=== PATIENT | female | born 1950 | race Caucasian/White ===

== ENCOUNTER 2018-02-19 14:55 | Emergency (ER) | payer BC ==
--- NOTE | 2018-02-19 15:54 | PDOC ---
History of Present Illness <Kathrin Jones - Last Filed: 02/19/18 18:23> - General History Source: Patient Exam Limitations: No Limitations - History of Present Illness Initial Comments: 02/19/18 15:47 68y F hx of htn, cervical stenosis presents with complaint of ataxia. The patient was feelig well this morning, went to her pain management doctor to have a cervical injection for her stenosis, and afterwards, was noted to be a bit ataxic and unable to ambulate. The pt denies any neck pain, headache, n/v, vision changes, dysartria, numbness/weakness/tingling, fever/chills, cp, sob, abd pain, diaphoresis, dysuria, palpitations. pt denies any focal weakness. <Maciej Smith - Last Filed: 02/19/18 18:35> - General Chief Complaint: CVA/TIA Stated Complaint: OFF BALANCE AFTER STERIOD INJECTION Time Seen by Provider: 02/19/18 15:29 Past History <Kathrin Jones - Last Filed: 02/19/18 18:23> - Past Medical History Anemia: No Asthma: No Cancer: No Cardiac Disorders: No CVA: No COPD: No CHF: No Dementia: No Diabetes: No GI Disorders: No Disorders: No HTN: Yes Hypercholesterolemia: Yes Liver Disease: No Seizures: No Thyroid Disease: No - Surgical History Abdominal Surgery: No Appendectomy: No Cardiac Surgery: No Cholecystectomy: No Lung Surgery: No Neurologic Surgery: No Orthopedic Surgery: Yes (LEFT FOOT) - Suicide/Smoking/Psychosocial Hx Smoking History: Former smoker Have you smoked in the past 12 months: No If you are a former smoker, when did you quit?: Hx Alcohol Use: Yes (WINE) Drug/Substance Use Hx: No Substance Use Type: Alcohol Hx Substance Use Treatment: No <Maciej Smith - Last Filed: 02/19/18 18:35> - Past Medical History Allergies/Adverse Reactions: Allergies Allergy/AdvReac Type Severity Reaction Status Date / Time No Known Allergies Allergy Verified 02/19/18 16:41 Home Medications: Ambulatory Orders Aspirin [ASA -] 81 mg PO DAILY 06/25/12 Cyanocobalamin (Vitamin B-12) [B-12] 5,000 mcg SL DAILY 08/18/16 Diphenhydramine HCl [Benadryl] 50 mg PO HS capsule 08/18/16 Psyllium Husk (with Sugar) [Metamucil Packet] 3.4 gm PO TID 08/18/16 Sennosides [Senokot] 8.6 mg PO TID tablet 08/18/16 Cholecalciferol (Vitamin D3) [Vitamin D] 2,000 unit PO DAILY 02/19/18 Tramadol HCl 50 mg PO BID PRN 02/19/18 Review of Systems - Review of Systems Able to Perform ROS?: Yes Comments:: 02/19/18 15:51 Constitutional - no reported Fever, Chills, HEENT: no reported vision changes, sore throat Respiratory: no reported cough, sob, hemoptysis Cardiac: no reported chest pain, palpitations, light headedness, leg swelling Abd/GI: no reported abd pain, nausea, vomiting, blood per rectum, melena, diarrhea : no reported dysuria, frequency, discharge Musculskelatal - no reported back pain, joint swelling skin - no reported bruising, erythema, rash neurological: +Ataxia no reported headache, numbness, focal weakness, tingling hematologic: no reported easy bruising, easy bleeding <Maciej Smith - Last Filed: 02/19/18 18:35> *Physical Exam - Vital Signs Last Vital Signs Temp Pulse Resp BP Pulse Ox 98.4 F 75 16 149/74 99 02/19/18 15:18 02/19/18 15:18 02/19/18 15:18 02/19/18 15:18 02/19/18 15:18 <Kathrin Jones - Last Filed: 02/19/18 18:23> - Physical Exam Comments: 02/19/18 15:54 GENERAL: The patient is awake, alert, and fully oriented, Nontoxic - in no acute distress. HEAD: Normocephalic, atraumatic. EYES: extraocular movements intact, sclera anicteric, conjunctiva clear. ENT: Normal voice, Moist mucous membranes. NECK: Normal range of motion, supple LUNGS: Breath sounds equal, clear to auscultation bilaterally. No wheezes, no rhonchi, no rales. HEART: Regular rate and rhythm, normal S1 and S2 without murmur, rub or gallop. ABDOMEN: Soft, nontender, normoactive bowel sounds. No guarding, no rebound. . No CVA tenderness EXTREMITIES: Normal range of motion, no edema. No clubbing or cyanosis. No cords, erythema, or tenderness. PSYCH: Normal mood, normal affect. SKIN: Warm, Dry, normal turgor, NEURO: Mental status: The patient is oriented x3. Cranial nerves: Cranial nerves II through XII are intact Motor: The upper extremities are 5 over 5 in all muscle groups. The lower extremities are 5 over 5 in all muscle groups. Negative pronator drift Sensation: Sensation is intact to light touch throughout. romberg negative Cerebellar: Gpgijq-wkxkuk-snmv is normal in both upper extremities. Heel-knee- dawn is normal in both lower extremities. rapid alternating movements are normal. Reflexes: 2+ and symmetric in the upper and lower extremities. Gait: Normal gait, but ataxic heel/toe gait <Maciej Smith - Last Filed: 02/19/18 18:35> Moderate Sedation - Procedure Monitoring Vital Signs: Vital Signs Temp Pulse Resp BP Pulse Ox 98.4 F 75 16 149/74 99 02/19/18 15:18 02/19/18 15:18 02/19/18 15:18 02/19/18 15:18 02/19/18 15:18 <Kathrin Jones - Last Filed: 02/19/18 18:23> ED Treatment Course - LABORATORY CBC & Chemistry Diagram: 02/19/18 16:30 02/19/18 16:30 - ADDITIONAL ORDERS Additional order review: Laboratory Results 02/19/18 02/19/18 16:30 16:02 Sodium 133 L Potassium 4.4 Chloride 103 Carbon Dioxide 24 Anion Gap 6 L BUN 22 H Creatinine 1.1 Creat Clearance w eGFR 49.25 Random Glucose 117 H Calcium 9.8 Total Bilirubin 0.5 AST 24 ALT 15 Alkaline Phosphatase 67 Total Protein 7.4 Albumin 4.2 Urine Color Yellow Urine Appearance Clear Urine pH 5.5 Ur Specific [place] <= 1.005 Urine Protein Negative Urine Glucose (UA) Negative Urine Ketones Negative Urine Blood Negative Urine Nitrite Negative Urine Bilirubin Negative Urine Urobilinogen 0.2 Ur Leukocyte Esterase Negative 02/19/18 16:30 RBC 4.46 MCV 90.1 MCHC 34.9 RDW 12.6 MPV 9.2 Neutrophils % 86.9 H Lymphocytes % 10.9 Monocytes % 1.3 L Eosinophils % 0.6 Basophils % 0.3 - RADIOLOGY Radiograph Interpretation: 02/19/18 18:23 C-spine MRI as reviewed by Dr. Carrasquillo reports no interval change as compared to prior exam <Kathrin Jones - Last Filed: 02/19/18 18:23> - LABORATORY CBC & Chemistry Diagram: 02/19/18 16:30 02/19/18 16:30 - RADIOLOGY Radiology Studies Ordered: Category Date Time Status CERVICAL SPINE MRI W/O CONTR [MRI] Stat MRI 02/19/18 15:46 Ordered <Gray Smithan - Last Filed: 02/19/18 18:35> Medical Decision Making - Medical Decision Making 02/19/18 18:[address] Darrian Quinones and Dr. Ramirez, awaiting call backs. Call returned by Dr. Quinones, case discussed <RobertKathrin - Last Filed: 02/19/18 18:23> - Medical Decision Making 02/19/18 15:55 exam nonfocal beside inability to do heel/toe ambulation no cerebellar findings ?uncelar cause of ataxia - ?complication by injection? will obtian MRI will discuss with dr. ramirez 02/19/18 18:30 MRI negative, pt ambulatory, states that she figured out what was going on 'the ground feels softer' and she is overcompensating. recommended hospital observation for neuro consult,but pt would prefer seeing neuro as outpatient. discussed with dr. Ramirez, states this is reasonable and can see her tomorrow. I discussed the physical exam findings, ancillary test results and final diagnoses with the patient. I answered all of the patient's questions. The patient was satisfied with the care received and felt comfortable with the discharge plan and treatment plan. The patient will call their primary care physician within 24 hours to arrange follow-up and will return to the Emergency Department with any new, persistent or worsening symptoms. <Maciej Smith - Last Filed: 02/19/18 18:35> *DC/Admit/Observation/Transfer <Kathrin Jones - Last Filed: 02/19/18 18:23> - Discharge Dispostion Decision to Admit order: No <Maciej Smith - Last Filed: 02/19/18 18:35> Diagnosis at time of Disposition: Gait abnormality - Discharge Dispostion Disposition: HOME Condition at time of disposition: Improved - Referrals Referrals: Mj Antunez MD [Primary Care Provider] - Raghavendra Ramirez MD [Staff Physician] - - Patient Instructions Additional Instructions: Return to the emergency department immediately with ANY new, persistent or worsening symptoms. The results of your MRI were included with the discharge packet. You MUST call and follow up with Dr. Ramirez tomorrow for further evaluation of your symptoms. Results were discussed with you. Please make sure your doctor reviews the results of your emergency evaluation. Print Language: ETHIOPIAN - Post Discharge Activity
[2018-02-19 16:56] VITALS: BP 149/74; PULSE 75; TEMP 98.4; BMI 23.0
[2018-02-19 17:00] LABS: PH,URINE 5.5 (4.5-8); URINE APPEARANCE Clear; URINE BILIRUBIN Negative (NEGATIVE); URINE BLOOD Negative (NEGATIVE); URINE GLUCOSE (UA) Negative (NEGATIVE); URINE KETONE Negative (NEGATIVE); URINE LEUK ESTERASE Negative (NEGATIVE); URINE NITRITE Negative (NEGATIVE); URINE PROTEIN Negative (NEGATIVE); URINE UROBILINOGEN 0.2 (0.2-1.0)
[2018-02-19 17:01] LABS: URINE COLOR YELLOW
[2018-02-19 17:18] LABS: BASO % 0.3 % (0-2.0); EOS % 0.6 % (0-4.5); HEMATOCRIT 40.2 % (32.4-45.2); HEMOGLOBIN 14.1 GM/dl (10.7-15.3); LYMPH % 10.9 % (8-40); MCH 31.5 pg (25.7-33.7); MCHC 34.9 g/dl (32.0-36.0); MEAN CELL VOLUME 90.1 fl (80-96); MEAN PLT VOLUME 9.2 fl (7.5-11.1); MONO % 1.3 % (3.8-10.2); NEUT % 86.9 % (42.8-82.8); PLATELET COUNT 230 K/MM3 (134-434); RBC 4.46 M/mm3 (3.60-5.2); RDW 12.6 % (11.6-15.6); WHITE BLOOD COUNT 6.4 K/mm3 (4.0-10.8)
[2018-02-19 17:19] LABS: ALBUMIN 4.2 g/dl (3.5-5.0); ALK PHOS 67 U/L (32-92); ANION GAP 6 (8-16); BILIRUBIN,TOTAL 0.5 mg/dl (0.2-1.0); BLOOD UREA NITROGEN 22 mg/dl (7-18); CALCIUM 9.8 mg/dl (8.4-10.2); CHLORIDE 103 mmol/L (98-107); CO2 24 mmol/L (22-28); CREATININE 1.1 mg/dl (0.6-1.3); GLUCOSE,RANDOM 117 mg/dl (74-106); POTASSIUM 4.4 mmol/L (3.5-5.1); SGOT/AST 24 U/L (10-42); SGPT/ALT 15 U/L (10-40); SODIUM 133 mmol/L (136-145); TOT PROT 7.4 g/dl (6.4-8.3)
== END 2018-02-19 18:56 | disposition home or self-care (01) ==
LOC: FER 14:55
DX: R26.9 Unspecified abnormalities of gait and mobility (principal); I10 Essential (primary) hypertension; E78.00 Pure hypercholesterolemia, unspecified
CPT/HCPCS: 36415; 72141-TC; 80053; 81003; 85025; 99283-25

== ENCOUNTER 2018-09-30 15:18 | Emergency (ER) | payer BC ==
--- NOTE | 2018-09-30 15:25 | PDOC ---
History of Present Illness - General Chief Complaint: Chronic pain Stated Complaint: PAIN DOWN BOTH ARMS Time Seen by Provider: 09/30/18 15:24 Past History - Past Medical History Allergies/Adverse Reactions: Allergies Allergy/AdvReac Type Severity Reaction Status Date / Time No Known Allergies Allergy Verified 02/19/18 16:41 Home Medications: Ambulatory Orders Aspirin [ASA -] 81 mg PO DAILY 06/25/12 Cyanocobalamin (Vitamin B-12) [B-12] 5,000 mcg SL DAILY 08/18/16 Diphenhydramine HCl [Benadryl] 50 mg PO HS capsule 08/18/16 Psyllium Husk (with Sugar) [Metamucil Packet] 3.4 gm PO TID 08/18/16 Sennosides [Senokot] 8.6 mg PO TID tablet 08/18/16 Cholecalciferol (Vitamin D3) [Vitamin D] 2,000 unit PO DAILY 02/19/18 Tramadol HCl 50 mg PO BID PRN 02/19/18 Anemia: No Asthma: No Cancer: No Cardiac Disorders: No CVA: No COPD: No CHF: No Dementia: No Diabetes: No GI Disorders: No Disorders: No HTN: Yes Hypercholesterolemia: Yes Liver Disease: No Seizures: No Thyroid Disease: No - Surgical History Abdominal Surgery: No Appendectomy: No Cardiac Surgery: No Cholecystectomy: No Lung Surgery: No Neurologic Surgery: No Orthopedic Surgery: Yes (LEFT FOOT) - Suicide/Smoking/Psychosocial Hx Smoking History: Former smoker Have you smoked in the past 12 months: No If you are a former smoker, when did you quit?: Hx Alcohol Use: Yes (WINE) Drug/Substance Use Hx: No Substance Use Type: Alcohol Hx Substance Use Treatment: No *DC/Admit/Observation/Transfer - Discharge Dispostion Condition at time of disposition: Good - Referrals Referrals: Mj Antunez MD [Primary Care Provider] - - Patient Instructions - Post Discharge Activity
[2018-09-30 15:44] VITALS: BP 177/84; PULSE 88; TEMP 97.4; BMI 22.1
[2018-09-30] MEDS ORDERED: predniSONE 20 MG TABLET (UD) PO ONE (16:01)
[2018-09-30] MEDS ORDERED: predniSONE 20 MG TABLET (UD) ONE (16:04)
--- NOTE | 2018-09-30 16:07 | PDOC ---
History of Present Illness - General Chief Complaint: Chronic pain Stated Complaint: PAIN DOWN BOTH ARMS Time Seen by Provider: 09/30/18 15:24 History Source: Patient Exam Limitations: No Limitations - History of Present Illness Initial Comments: 09/30/18 16:01 68 y/o female with hx of spinal stenosis scheduled for surgery on 10/29/2018. No weakness, but has numbness down both arms and legs. No fall or trauma. Doing more lifting. No fever or chills. Denies incontinence. Patient does not want muscle relaxants or Percocet. Worse with certain movements. Past History - Past Medical History Allergies/Adverse Reactions: Allergies Allergy/AdvReac Type Severity Reaction Status Date / Time No Known Allergies Allergy Verified 09/30/18 15:33 Home Medications: Ambulatory Orders Cyanocobalamin (Vitamin B-12) [B-12] 5,000 mcg SL DAILY 08/18/16 Diphenhydramine HCl [Benadryl] 50 mg PO HS capsule 08/18/16 Psyllium Husk (with Sugar) [Metamucil Packet] 3.4 gm PO TID 08/18/16 Sennosides [Senokot] 8.6 mg PO TID tablet 08/18/16 Cholecalciferol (Vitamin D3) [Vitamin D] 2,000 unit PO DAILY 02/19/18 Tramadol HCl 50 mg PO BID PRN 02/19/18 Methylprednisolone [Medrol Dose Alexey] 4 mg PO ASDIR #21 tablet 09/30/18 Anemia: No Asthma: No Cancer: No Cardiac Disorders: No CVA: No COPD: No CHF: No Dementia: No Diabetes: No GI Disorders: No Disorders: No HTN: Yes Hypercholesterolemia: Yes Liver Disease: No Seizures: No Thyroid Disease: No Other medical history: CHRONIC BACK PAIN - Surgical History Abdominal Surgery: No Appendectomy: No Cardiac Surgery: No Cholecystectomy: No Lung Surgery: No Neurologic Surgery: No Orthopedic Surgery: Yes (LEFT FOOT) - Suicide/Smoking/Psychosocial Hx Smoking History: Former smoker Have you smoked in the past 12 months: No If you are a former smoker, when did you quit?: Hx Alcohol Use: Yes (WINE) Drug/Substance Use Hx: No Substance Use Type: Alcohol Hx Substance Use Treatment: No Review of Systems - Review of Systems Able to Perform ROS?: Yes Is the patient limited Latvian proficient: No Constitutional: No: Chills, Fever HEENTM: No: Eye Pain Respiratory: No: Cough, Orthopnea, Shortness of Breath Cardiac (ROS): No: Chest Pain, Palpitations ABD/GI: No: Nausea, Vomiting Musculoskeletal: No: Back Pain, Joint Pain, Joint Swelling, Muscle Pain Integumentary: No: Bruising, Erythema, Rash Neurological: Yes: Paresthesia. No: Headache, Tingling, Weakness, Unsteady Gait , Ataxia Hematologic/Lymphatic: No: Anemia All Other Systems: Reviewed and Negative *Physical Exam - Vital Signs Last Vital Signs Temp Pulse Resp BP Pulse Ox 97.4 F L 88 16 177/84 H 100 09/30/18 15:20 09/30/18 15:20 09/30/18 15:20 09/30/18 15:20 09/30/18 15:20 - Physical Exam General Appearance: Yes: Nourished, Appropriately Dressed. No: Apparent Distress HEENT: positive: EOMI, JODI, Normal ENT Inspection, Normal Voice, Symmetrical, Pharynx Normal Neck: positive: Trachea midline, Normal Thyroid, Supple. negative: Tender, Rigid, Carotid bruit Respiratory/Chest: positive: Lungs Clear, Normal Breath Sounds. negative: Chest Tender, Respiratory Distress Cardiovascular: positive: Regular Rhythm, Regular Rate, S1, S2. negative: Edema , JVD, Murmur Vascular Pulses: Femoral (R): 4+, Femoral (L): 4+, Carotid (R): 4+, Carotid (L) : 4+, Dorsalis-Pedis (R): 4+, Doralis-Pedis (L): 4+ Gastrointestinal/Abdominal: positive: Normal Bowel Sounds, Flat, Soft. negative : Tender, Organomegaly, Pulsatile Mass Lymphatic: negative: Adenopathy, Tenderness, Other Musculoskeletal: positive: Normal Inspection. negative: CVA Tenderness Extremity: positive: Normal Capillary Refill, Normal Inspection, Normal Range of Motion. negative: Tender, Swelling, Calf Tenderness, Erythema Integumentary: positive: Normal Color, Dry, Warm Neurologic: positive: finisher fiberglass boat parts II-XII NML intact, Fully Oriented, Normal Mood/Affect , Normal Response, Motor Strength 5/5 (strength 5+/5 b/l in UE and LE, no focal deficits noted) Moderate Sedation - Procedure Monitoring Vital Signs: Procedure Monitoring Vital Signs Temperature 97.4 F L 09/30/18 15:20 Pulse Rate 88 09/30/18 15:20 Respiratory Rate 16 09/30/18 15:20 Blood Pressure 177/84 H 09/30/18 15:20 O2 Sat by Pulse Oximetry (%) 100 09/30/18 15:20 ED Treatment Course - ADDITIONAL ORDERS Additional order review: 09/30/18 16:32 Pt has done well, VSS and no neurological deficits noted Continue current treatment and follow up with spinal specialist Will place on Medrol dose pack Pt is in agreement with plan If worsen return to ER 09/30/18 16:34 No sign of epidural/spinal abscess seen *DC/Admit/Observation/Transfer Diagnosis at time of Disposition: Spinal stenosis Qualifiers: Spinal region: unspecified Qualified Code(s): M48.00 - Spinal stenosis, site unspecified - Discharge Dispostion Disposition: HOME Condition at time of disposition: Good Decision to Admit order: No - Referrals Referrals: Mj Antunez MD [Primary Care Provider] - - Patient Instructions Printed Discharge Instructions: DI for Spinal Stenosis Additional Instructions: Fluids, rest Continue current treatment Medrol dose pack as directed Follow up with your specialist If worsen return to ER - Post Discharge Activity
== END 2018-09-30 16:42 | disposition home or self-care (01) ==
LOC: FER 15:18
DX: M48.00 Spinal stenosis, site unspecified (principal); Z87.891 Personal history of nicotine dependence
CPT/HCPCS: 99282-25

== ENCOUNTER 2018-10-29 10:36 | Inpatient (IN) | payer BC ==
[2018-10-29 11:41] LABS: ALBUMIN 3.8 g/dl (3.4-5.0); ALK PHOS 95 U/L (45-117); ANION GAP 5 MMOL/L (8-16); BILIRUBIN,TOTAL 0.7 mg/dL (0.2-1); BLOOD UREA NITROGEN 23 mg/dL (7-18); CALCIUM 9.5 mg/dL (8.5-10.1); CHLORIDE 105 mmol/L (98-107); CO2 28 mmol/L (21-32); CREATININE 1.4 mg/dL (0.55-1.3); GLUCOSE,RANDOM 95 mg/dL (74-106); POTASSIUM 4.7 mmol/L (3.5-5.1); SGOT/AST 18 U/L (15-37); SGPT/ALT 17 U/L (13-61); SODIUM 138 mmol/L (136-145); TOT PROT 7.7 g/dl (6.4-8.2)
[2018-10-29] MEDS ORDERED: THROMBIN (BOVINE) 5,000 UNIT VIAL TP ONE ×2 (17:22→20:10)
[2018-10-29] MEDS ORDERED: fentaNYL CITRATE 250 MCG/5 ML VIAL ONE ×2 (17:33→18:45)
[2018-10-29] MEDS ORDERED: SUCCINYLCHOLINE CHLORIDE 200 MG/10 ML VIAL ONE (17:33)
[2018-10-29] MEDS ORDERED: MIDAZOLAM HCL 2 MG/2 ML SINGLE DOSE VIAL ONE (17:33)
[2018-10-29] MEDS ORDERED: LIDOCAINE HCL/PF 2% SDV 5ML VIAL ONE ×3 (17:34→21:18)
[2018-10-29] MEDS ORDERED: PROPOFOL 20 ML ONE ×4 (17:34→19:42)
[2018-10-29] MEDS ORDERED: ceFAZolin SODIUM 1 GM VIAL IVPB ONE (18:10)
[2018-10-29 18:17] LABS: POTASSIUM 4.6 mmol/L (3.5-5.1)
[2018-10-29] MEDS ORDERED: ROCURONIUM BROMIDE 50 MG/5 ML VIAL ONE (18:27)
[2018-10-29] MEDS ORDERED: DEXAMETHASONE SOD PHOSPHATE 4 MG/1 ML VIAL ONE (18:30)
[2018-10-29] MEDS ORDERED: TRANEXAMIC ACID 1000 MG/10 ML VIAL ONE (18:30)
[2018-10-29] MEDS ORDERED: GLYCOPYRROLATE 0.2 MG/1 ML VIAL ONE ×2 (18:30→19:37)
[2018-10-29] MEDS ORDERED: PHENYLEPHRINE HCL 10 MG/1 ML SINGLE DOSE VIAL ONE (18:46)
[2018-10-29] MEDS ORDERED: ONDANSETRON 4 MG/2 ML VIAL IVPUSH PRN ×3 (18:59→21:40)
[2018-10-29] MEDS ORDERED: LACTATED RINGERS SOLUTION 1,000 ML IV SCH ×2 (19:00→21:45)
[2018-10-29] MEDS ORDERED: PROMETHAZINE HCL 25 MG/1 ML VIAL IVPB PRN (19:02)
[2018-10-29] MEDS ORDERED: DEXAMETHASONE SOD PHOSPHATE 4 MG/1 ML VIAL IVPUSH PRN (19:02)
[2018-10-29] MEDS ORDERED: NEOSTIGMINE METHYLSULFATE 0.5 MG/ML - 10 ML MDV ONE (19:36)
[2018-10-29] MEDS ORDERED: oxyCODONE HCL 5 MG TABLET PO PRN ×2 (21:40)
[2018-10-29] MEDS ORDERED: ACETAMINOPHEN INJECTION 100 ML IVPB ONE (21:49)
[2018-10-29] MEDS ORDERED: HYDROmorphone *PCA* 10MG/50ML DISP.SYRIN PCA ONE (21:49)
--- NOTE | 2018-10-29 21:56 | PN ---
Progress Note (short form) - Note Progress Note: 68F s/p C4-C5, C5-C6, C6-C7 discectomies; C5, C6 corpectomies; C4, C7 partial corpectomies; C3-C7 anterior cervical decompression and instrumented fusion POD #0. -Admit to ICU x 24 hrs. for airway observation; OK to downgrade to floor 2018 if airway stable. -Maintain head of bed 45 degrees. -Pain control: per anaesthesia team; No NSAID's. -DVT PPx: -Mechanical only: LYSSA's, SCD's. -Post-op Ancef x 2 doses. -f/u AM labs. -Incentive spirometry. -PT/OT/Rehab, OOB. -No heavy lifting, bending or twisting. -PWB B/L UE <5 lbs. -WBAT B/L LE. -d/c Abdalla catheter in AM; f/u TOV (8 hrs. MAX). -Keep dressing clean & dry. -Mechanical soft diet; advance as tolerated. -B/L UE & LE NV checks. -Care per ICU & primary medical hospitalist teams. -Discharge planning: f/u [facility] [place] office Monday11/09/2018; call for appointment; . Tino Miranda MD (Orthopaedic Surgery).
--- NOTE | 2018-10-29 21:58 | OP ---
Operative Note - Note: Operative Date: 10/29/18 Pre-Operative Diagnosis: 1. Multi-level cervical disc disorder with radiculopathy. 2. Multi-level cervical stenosis with neurogenic claudication. 3. Kyphosis. 4. Multi-level cervical segmental instability Operation: 1. C4-C5, C5-C6, C6-C7 discectomies. 2. C5, C6 corpectomies. 3. C4 , C7 partial corpectomies. 4. Insertion biomechanical device (cage) C3-C7. 5. C4-C7 anterior arthrodesis. 6. C4-C7 anterior instrumentation. 7. Bone autograft. 8. Bone allograft. 9. Intra-operative biplanar fluoroscopy. 10. Intra-operative neural monitoring. Post-Operative Diagnosis: Same as Pre-op Surgeon: Tino Miranda Rattle Leak And Squeak Repairer: Van Miranda Anesthesiologist/SAFEMAKER: Gem Sims Anesthesia: General Specimens Removed: C4-C5, C5-C6, C6-C7 discs Estimated Blood Loss (mls): 200 Drains & Tubes with Location: 1 x deep HemoVac Blood Volume Replaced (mls): 70 (Cell Saver) Fluid Volume Replaced (mls): 1,700 (Crystalloid) Operative Report Dictated: Yes
[2018-10-29] MEDS: ACETAMINOPHEN 1000 MG/100 ML VIAL (NON FORMULARY) IVPB ONE (22:00)
--- NOTE | 2018-10-29 22:09 | PN ---
Physical Exam: SUBJECTIVE: Patient seen and examined in ICU. Patient denies pain, numbness, tingling, SOB, abdominal pain, chest pain. OBJECTIVE: Vital Signs Period Temp Pulse Resp BP Sys/Miller Pulse Ox Last 24 Hr 97.9 F 97 20 159/91 97 GENERAL: The patient is awake, alert, and fully oriented, in no acute distress. HEAD: Normal with no signs of trauma. LUNGS: Breath sounds equal, clear to auscultation bilaterally, no wheezes, no crackles, no accessory muscle use. HEART: Regular rate and rhythm, S1, S2 without murmur, rub or gallop. ABDOMEN: Soft, nontender, nondistended, normoactive bowel sounds, no guarding, no rebound, no hepatosplenomegaly, no masses. EXTREMITIES: 2+ pulses, warm, well-perfused, no edema. NEUROLOGICAL: Cranial nerves II through X grossly intact. Normal speech, gait not observed. Strength 5/5 in all 4 limbs, Sensation intact over feet and hands. SKIN: Warm, dry, normal turgor, no rashes or lesions noted. Dressing placed over anterior neck C/D/I. Did not roll patient to inspect posterior incision 2/ 2 pain. Laboratory Results - last 24 hr 10/29/18 10/29/18 10/29/18 10:54 10:54 17:35 Sodium 138 138 Potassium 4.7 4.6 Chloride 105 106 Carbon Dioxide 28 27 Anion Gap 5 L 6 L BUN 23 H Creatinine 1.4 H Creat Clearance w eGFR 37.28 Random Glucose 95 Calcium 9.5 Total Bilirubin 0.7 AST 18 ALT 17 Alkaline Phosphatase 95 Total Protein 7.7 Albumin 3.8 Blood Type O POSITIVE Antibody Screen Negative Active Medications Generic Name Dose Route Start Last Admin Trade Name Freq PRN Reason Stop Dose Admin Amlodipine Besylate 5 mg 10/30/18 10:00 Norvasc - PO DAILY [facility] Atorvastatin Calcium 20 mg 10/30/18 10:00 Lipitor - PO DAILY [facility] Dexamethasone Sodium Phosphate 4 mg 10/29/18 19:02 Decadron Injection - IVPUSH ONCE PRN NAUSEA AND/OR VOMITING Diphenhydramine HCl 12.5 mg 10/29/18 19:02 Benadryl Injection - IVPUSH ONCE PRN FOR ITCHING Fentanyl 50 mcg 10/29/18 18:59 Sublimaze Injection - IVPUSH [id number] PRN PAIN-PACU ORDER X 4 DOSES ONLY Hydromorphone HCl 0 mg 10/29/18 19:15 Dilaudid Assistant Counsel - TOMOGRAPHY TECHNOLOGIST 11/05/18 19:03 TOMOGRAPHY TECHNOLOGIST [facility] Protocol Lactated Ringer's 1,000 mls @ 125 mls/hr 10/29/18 19:00 Lactated Ringers Solution IV ASDIR [facility] Cefazolin Sodium 50 mls @ 100 mls/hr 10/30/18 02:00 Ancef 1 Gm Premixed Ivpb - IVPB 10/30/18 10:29 Q8H-IV YENI Lactated Ringer's 1,000 mls @ 100 mls/hr 10/29/18 21:45 Lactated Ringers Solution IV ASDIR [facility] Non-Formulary Medication 2,000 unit 10/30/18 10:00 Cholecalciferol (Vitamin D3) [Vitamin D3] PO DAILY [facility] Non-Formulary Medication 100 mg 10/30/18 07:00 Losartan Potassium [Losartan Potassium] PO AM [facility] Non-Formulary Medication 100 mg 10/29/18 22:00 Sertraline Hcl [Sertraline Hcl] PO BID [facility] Ondansetron HCl 4 mg 10/29/18 18:59 Zofran Injection IVPUSH Q6H PRN NAUSEA AND/OR VOMITING Ondansetron HCl 4 mg 10/29/18 19:02 Zofran Injection IVPUSH Q4H PRN NAUSEA AND/OR VOMITING Ondansetron HCl 4 mg 10/29/18 21:40 Zofran Injection IVPUSH Q6H PRN NAUSEA AND/OR VOMITING Oxycodone HCl 5 mg 10/29/18 21:40 Roxicodone - PO Q4H PRN PAIN LEVEL 6-10 Oxycodone HCl 10 mg 10/29/18 21:40 Roxicodone - PO Q4H PRN PAIN LEVEL 7 - 10 Pneumococcal 13-Valent Conj Vacc 0.5 ml 10/29/18 11:23 Prevnar 13 Syringe - IM 10/29/18 11:24 .ONCE ONE Promethazine HCl 12.5 mg 10/29/18 19:02 Phenergan Injection - IVPB Q6H PRN NAUSEA AND/OR VOMITING Senna tab 10/29/18 22:00 Senna - PO TID [facility] ASSESSMENT/PLAN: The patient is a 68 yo f w/PMH Spinal stenosis who is POD 0 s/p C4-C5, C5-C6, C6 -C7 discectomies; C5, C6 corpectomies; C4, C7 partial corpectomies; C3-C7 anterior cervical decompression and instrumented fusion w/ Dr. Miranda. #POD 0 spinal surgery -management as per Dr. Sim's note: -Admit to ICU for24 hrs for airway observation -OK to downgrade on 10/31/18 -HOB elevated to 45 degrees -post op Ancef IV x 2 doses -Incentive spirometry -may DC alva in AM and attempt void trial -neuro checks -Pain control w/ TOMOGRAPHY TECHNOLOGIST as per anesthesia -avoid NSAIDS -PT -Soft collar in AM #FEN -no fluids indicated -lytes WNL, monitor -mechanical soft diet; may advance as tolerated #Prophy -mechanical DVT prophy ONLY -TEDs, SCDs #Dispo -admit ICU for 24hrs Visit type - Emergency Visit Emergency Visit: Yes ED Registration Date: 10/29/18 Care time: The patient presented to the Emergency Department on the above date and was hospitalized for further evaluation of their emergent condition. - New Patient This patient is new to me today: Yes Date on this admission: 10/30/18 - Critical Care Critical Care patient: Yes Total Critical Care Time (in minutes): 40 Critical Care Statement: The care of this patient involved high complexity decision making to prevent further life threatening deterioration of the patient 's condition and/or to evaluate & treat vital organ system(s) failure or risk of failure. - Discharge Referral Referred to [facility] No
[2018-10-29] MEDS: HYDROmorphone *PCA* 10MG/50ML DISP.SYRIN PCA SCH (22:10)
--- NOTE | 2018-10-29 23:45 | CONSULT ---
Consult Consult Specialty:: ICU Referred by:: lily Reason for Consultation:: ICU monitoring for airway post-op - History of Present Illness Chief Complaint: post-op History of Present Illness: 68y woman with of htn, hx of cervical stenosis POD#0 from cervical fusion. She has been having increasing pain with moving her arms which prompted her surgery. pain controlled on MEDICAL SALES REPRESENTATIVE pump. denies sob, trouble breathing, headache, chest pain. As per operative note, patient underwent: C3-C7 anterior cervical decompression and instrumented fusion - History Source History Provided By: Patient - Alcohol/Substance Use Hx Alcohol Use: Yes (WINE) - Smoking History Smoking history: Former smoker Have you smoked in the past 12 months: No If you are a former smoker, when did you quit?: Home Medications - Allergies Allergies/Adverse Reactions: Allergies Allergy/AdvReac Type Severity Reaction Status Date / Time No Known Allergies Allergy Verified 10/25/18 09:19 - Home Medications Home Medications: Ambulatory Orders Cyanocobalamin (Vitamin B-12) [B-12] 5,000 mcg SL DAILY 08/18/16 Diphenhydramine HCl [Benadryl] 50 mg PO HS capsule 08/18/16 Psyllium Husk (with Sugar) [Metamucil Packet] 3.4 gm PO TID 08/18/16 Sennosides [Senokot] 8.6 mg PO TID tablet 08/18/16 Cholecalciferol (Vitamin D3) [Vitamin D] 2,000 unit PO DAILY 02/19/18 Tramadol HCl 50 mg PO BID PRN 02/19/18 Review of Systems - Review of Systems Constitutional: denies: Fever, Lethargy Eyes: reports: No Symptoms HENT: reports: No Symptoms Neck: reports: Tenderness Cardiovascular: reports: No Symptoms Respiratory: reports: No Symptoms Gastrointestinal: reports: No Symptoms Genitourinary: reports: No Symptoms Integumentary: reports: No Symptoms Neurological: reports: Weakness (upper extremities) Physical Exam Vital Signs: Vital Signs Temperature 98 F 10/29/18 21:43 Pulse Rate 97 H 10/29/18 22:40 Respiratory Rate 18 10/29/18 22:40 Blood Pressure 135/65 10/29/18 22:40 O2 Sat by Pulse Oximetry (%) 98 10/29/18 22:40 Constitutional: Yes: Calm Eyes: Yes: Conjunctiva Clear, EOM Intact, PERRL HENT: Yes: Atraumatic, Normocephalic, Other (dry mucous membranes). No: Thrush Neck: Yes: Other (dressing is CDI with drain in place) Respiratory: Yes: Regular, CTA Bilaterally (anterior auscultation), On Nasal O2 Gastrointestinal: Yes: Soft Edema: No Peripheral Pulses WNL: Yes (radial b/l and DP b/l) Wound/Incision: Yes: Clean/Dry, Other (drain is draining sangious fluid) Neurological: Yes: Alert, Oriented. No: Loss of Sensation, Numbness, Tingling Labs: CBC, BMP 10/29/18 17:35 Assessment/Plan 68 yr old woman with HTN being monitored in the ICU POD#0 from cervical fusion. instructed as per surgery POD#0 - cervical fusion - ancef 2 doses - pain control with MEDICAL SALES REPRESENTATIVE pump - bowel regimen with senna - GI prophylaxis - scd's for VTE - Cardiovascular - HTN - hold po meds: norvasc and losartan, until taking PO - Pulmonary maintaining airway - Fluids, electrolytes, nutrition Lr @100cc/hr - npo until flatus activity - pt evaluation
[2018-10-30] MEDS: SENNOSIDES 8.6MG TABLET (FP) PO SCH ×4 (00:45→21:46)
[2018-10-30] MEDS: SERTRALINE HCL 50 MG TABLET (FP) PO SCH ×3 (00:46→21:46)
[2018-10-30] MEDS: ACETAMINOPHEN 1000 MG/100 ML VIAL (NON FORMULARY) IVPB ONE (00:47)
[2018-10-30] MEDS: CEFAZOLIN 1 GM/D5W 1 GM/50 ML BAG IVPB SCH ×2 (01:45→09:11)
[2018-10-30 09:09] LABS: ALBUMIN 3.2 g/dl (3.4-5.0); ALK PHOS 83 U/L (45-117); ANION GAP 8 MMOL/L (8-16); BILIRUBIN,TOTAL 0.5 mg/dL (0.2-1); BLOOD UREA NITROGEN 22 mg/dL (7-18); CALCIUM 8.9 mg/dL (8.5-10.1); CHLORIDE 103 mmol/L (98-107); CO2 27 mmol/L (21-32); CREATININE 1.2 mg/dL (0.55-1.3); GLUCOSE,RANDOM 117 mg/dL (74-106); MAGNESIUM 1.8 mg/dL (1.8-2.4); PHOSPHOROUS 4.7 mg/dL (2.5-4.9); POTASSIUM 4.9 mmol/L (3.5-5.1); SGOT/AST 22 U/L (15-37); SGPT/ALT 14 U/L (13-61); SODIUM 138 mmol/L (136-145); TOT PROT 6.7 g/dl (6.4-8.2)
[2018-10-30] MEDS: LOSARTAN POTASSIUM 50 MG TABLET (FP) PO SCH (09:12)
[2018-10-30] MEDS: FAMOTIDINE 20 MG/50 ML IVPB 20 MG/50 ML MG IVPB SCH ×2 (09:12→21:46)
[2018-10-30] MEDS: amLODIPine BESYLATE 5 MG TABLET (FP) PO SCH (09:12)
[2018-10-30] MEDS: CHOLECALCIFEROL (VITAMIN D3) 1,000 UNIT TABLET (FP) PO SCH (09:12)
[2018-10-30 09:15] LABS: BASO % 0.2 % (0-2.0); HEMATOCRIT 38.2 % (32.4-45.2); HEMOGLOBIN 13.2 GM/dL (10.7-15.3); LYMPH % 8.2 % (8-40); MCH 31.9 pg (25.7-33.7); MCHC 34.5 g/dl (32.0-36.0); MEAN CELL VOLUME 92.5 fl (80-96); MEAN PLT VOLUME 8.5 fl (7.5-11.1); MONO % 6.4 % (3.8-10.2); NEUT % 85.2 % (42.8-82.8); PLATELET COUNT 217 K/MM3 (134-434); RBC 4.13 M/mm3 (3.60-5.2); RDW 13.6 % (11.6-15.6); WHITE BLOOD COUNT 8.8 K/mm3 (4.0-10.0)
--- NOTE | 2018-10-30 09:19 | OP ---
DATE OF OPERATION: DATE OF DICTATION: 10/29/2018 SURGEON: Tino Miranda MD MECHANIC WELDER: Van Miranda MD PREOPERATIVE DIAGNOSIS: 1. Multi-level cervical disc disorder with radiculopathy. 2. Multi-level cervical stenosis with neurogenic claudication. 3. Kyphosis. 4. Multi-level cervical segmental instability POSTOPERATIVE DIAGNOSIS: 1. Multi-level cervical disc disorder with radiculopathy. 2. Multi-level cervical stenosis with neurogenic claudication. 3. Kyphosis. 4. Multi-level cervical segmental instability OPERATION PERFORMED: 1. C4-C5, C5-C6, C6-C7 discectomies. 2. C5, C6 corpectomies. 3. C4, C7 partial corpectomies. 4. Insertion biomechanical device (cage) C3-C7. 5. C4-C7 anterior arthrodesis. 6. C4-C7 anterior instrumentation. 7. Bone autograft. 8. Bone allograft. 9. Intra-operative biplanar fluoroscopy. 10. Intra-operative neural monitoring. ANESTHESIA: General. ANTIBIOTICS GIVEN: Kefzol 2 g, 1 g vancomycin. Decadron 10 mg given preoperative. OPERATION DETAILS: Patient correctly identified, brought to the operating room. Cervical spine was prepped and window draped in the routine manner with the shoulders extended by placing a bolster behind the scapulae transversely. Betadine scrub solution, wiped off with alcohol, DuraPrep applied. Neuromonitoring utilized. X-rays were available for intraoperative evaluation. An oblique incision made at the level of the chest below the cricothyroid interval. The dissection was taken down to the platysma, splitting the platysma, the investing fascia was split longitudinally and vertically up and down. Large anterior jugular veins were ligated and tied off. Dissection was taken between the viscera and vessels lateral to the strap muscles, giving dissection directly to the anterior cervical vertebral surface borders. The disks were noted. An 18-gauge needle was placed in the C4-5 disk and a lateral fluoroscopic x-ray revealed and confirmed its position. The self-retaining retractors were placed, that is a double dominguez arrangement appropriately. This gave easy access to the anterior vertebral column from C4 right down to C7. Utilizing a unipolar Bovie, the annulus was incised. The disks were removed with curets. Two longitudinal gutters were cut into the vertebral bodies of C5 and C6 right down to the posterior surface of the vertebral bodies, and the bone in between was then piecemeal resected using Leksell rongeurs. Once this had been completed, the bur was changed from a matchstick bur to a 14-mm round bur, juan jose tip. This enabled smooth, easy cutting of bone to flatten the endplates. All the disks were removed and all the tissues, including the posterior longitudinal ligament resected right down to the spinal cord, which is bulging and completely freed. The CASPAR pin distractors were placed in C4 and C7. We measured the space 38, but we oversized this to a 40 after having distracted the actual vertebral body slightly. The cage was then seated and filled with autologous as well as allograft bone. Solid fixation achieved. A size 43 Simplicity cage was applied and fixed solid into the C4 and C7 vertebral bodies. The plates were locked appropriately. Wounds were thoroughly lavaged. A 1/8-inch Hemovac drain was inserted. The wounds were closed in multiple layers with 3-0 Vicryl, subcutaneous 3-0 Vicryl, skin with Monocryl with Steri-Strips. Drainage as noted. Operation went extremely well, no complications. MD KRIS Wallis/[id number] GWYN
--- NOTE | 2018-10-30 11:00 | PN ---
Progress Note (short form) - Note Progress Note: SUBJECTIVE Patient seen and examined at the bedside. No chest pain or shortness of breath. Reports that her pain is well-controlled. OBJECTIVE Vital Signs Temperature 97.6 F 10/30/18 10:00 Pulse Rate 68 10/30/18 10:00 Respiratory Rate 14 10/30/18 10:00 Blood Pressure 130/58 L 10/30/18 10:00 O2 Sat by Pulse Oximetry (%) 97 10/30/18 09:21 General: Awake, alert, and fully oriented, in no acute distress Head: No signs of trauma Eyes: EOMI, sclera anicteric ENT: Dry mucus membranes Neck: Supple; surgical dressing in place, clean, dry, and intact Lungs: Lungs clear, Normal breath sounds Cardio: Regular rhythm, S1 and S2 present Abdomen: Soft, nontender Extremities: Normal range of motion, Distal pulses present SKIN: Warm, Dry, normal turgor Neurologic: Cranial nerves II through XII grossly intact. Normal speech ASSESSMENT 68F s/p C4-C5, C5-C6, C6-C7 discectomies; C5, C6 corpectomies; C4, C7 partial corpectomies; C3-C7 anterior cervical decompression and instrumented fusion POD #1. PLAN C-spine Surgery POD#[address] Sim's note: -ICU monitoring for 24 hrs for airway observation -OK to downgrade on 10/31/18 -HOB elevated to 45 degrees -Post op Ancef IV x 2 doses -Incentive spirometry -May DC alva in AM and attempt void trial -Neuro checks -Pain control w/ SVP DIGITAL AD SALES as per anesthesia -Avoid NSAIDS -PT -Soft collar in AM CARDIO Chronic HTN -home meds: norvasc and losartan FEN No fluids indicated Monitor electrolytes -replete as needed Mechanical soft diet; may advance as tolerated PPX DVT: Mechanical prophylaxis only given recent procedure, TEDs and SCDs GI: no need for now Disposition: Per neurosurgery, OK to downgrade to floor 10/31/2018 if airway stable.
--- NOTE | 2018-10-30 11:20 | PN ---
Teaching Attending Note Name of Resident: Irma Echevarria ATTENDING PHYSICIAN STATEMENT I saw and evaluated the patient. I reviewed the resident's note and discussed the case with the resident. I agree with the resident's findings and plan as documented. SUBJECTIVE: Patient seen and examined in the ICU. Awake and alert. No CP or SOB. No issues with breathing overnight but slight discomfort on swallowing. Intake & Output 10/27/18 10/28/18 10/29/18 10/30/18 23:59 23:59 23:59 23:59 Intake Total 1870 750 Output Total 700 370 Balance 1170 380 Weight 128 lb 8 oz Last Vital Signs Temp Pulse Resp BP Pulse Ox 97.6 F 68 14 130/58 L 97 10/30/18 10:00 10/30/18 10:00 10/30/18 10:00 10/30/18 10:00 10/30/18 09:21 Active Medications Amlodipine Besylate (Norvasc -) 5 mg PO DAILY [facility] Last Admin: 10/30/18 09:12 Dose: 5 mg Atorvastatin Calcium (Lipitor -) 20 mg PO [facility] Cholecalciferol (Vitamin D3 -) 2,000 unit PO DAILY [facility] Last Admin: 10/30/18 09:12 Dose: 2,000 unit Dexamethasone Sodium Phosphate (Decadron Injection -) 4 mg IVPUSH ONCE PRN PRN Reason: NAUSEA AND/OR VOMITING Diphenhydramine HCl (Benadryl Injection -) 12.5 mg IVPUSH ONCE PRN PRN Reason: FOR ITCHING Fentanyl (Sublimaze Injection -) 50 mcg IVPUSH [id number] PRN PRN Reason: PAIN-PACU ORDER X 4 DOSES ONLY Hydromorphone HCl (Dilaudid Certified Energy Manager -) 0 mg CHIEF LIBRARIAN BRANCH OR DEPARTMENT CHIEF LIBRARIAN BRANCH OR DEPARTMENT [facility]; Protocol Stop: 11/05/18 19:03 Last Admin: 10/29/18 22:10 Dose: 10 mg Lactated Ringer's (Lactated Ringers Solution) 1,000 mls @ 125 mls/hr IV ASDIR YENI Last Admin: 10/30/18 00:44 Dose: Not Given Lactated Ringer's (Lactated Ringers Solution) 1,000 mls @ 100 mls/hr IV ASDIR YENI Last Admin: 10/30/18 01:13 Dose: 100 mls/hr Famotidine/Sodium Chloride (Pepcid 20 Mg Premixed Ivpb -) 20 mg in 50 mls @ 100 mls/hr IVPB BID [facility] Last Admin: 10/30/18 09:12 Dose: 100 mls/hr Losartan Potassium (Cozaar -) 100 mg PO DAILY [facility] Last Admin: 10/30/18 09:12 Dose: 100 mg Ondansetron HCl (Zofran Injection) 4 mg IVPUSH Q6H PRN PRN Reason: NAUSEA AND/OR VOMITING Ondansetron HCl (Zofran Injection) 4 mg IVPUSH Q4H PRN PRN Reason: NAUSEA AND/OR VOMITING Ondansetron HCl (Zofran Injection) 4 mg IVPUSH Q6H PRN PRN Reason: NAUSEA AND/OR VOMITING Oxycodone HCl (Roxicodone -) 5 mg PO Q4H PRN PRN Reason: PAIN LEVEL 4 - 6 Oxycodone HCl (Roxicodone -) 10 mg PO Q4H PRN PRN Reason: PAIN LEVEL 7 - 10 Pneumococcal 13-Valent Conj Vacc (Prevnar 13 Syringe -) 0.5 ml IM .ONCE ONE Stop: 10/29/18 11:24 Promethazine HCl (Phenergan Injection -) 12.5 mg IVPB Q6H PRN PRN Reason: NAUSEA AND/OR VOMITING Senna (Senna -) 1 tab PO TID [facility] Last Admin: 10/30/18 06:48 Dose: Not Given Sertraline HCl (Zoloft -) 100 mg PO BID [facility] Last Admin: 10/30/18 09:11 Dose: 100 mg Constitutional: Yes: NAD Eyes: Yes: Conjunctiva Clear, EOM Intact, PERRL HENT: Yes: Atraumatic, Normocephalic, Other (dry mucous membranes). No: Thrush Neck: Yes: dressing is CDI with drain in place Respiratory: Yes: Clear, On Nasal O2 Gastrointestinal: Yes: Soft Edema: No Peripheral Pulses WNL: Yes (radial b/l and DP b/l) Wound/Incision: Yes: Clean/Dry, Other (drain is draining sangious fluid) Neurological: Yes: Alert, Oriented. No: Loss of Sensation, Numbness, Tingling Labs: Laboratory Results - last 24 hr 10/29/18 10/29/18 10/29/18 10:54 10:54 17:35 WBC RBC Hgb Hct MCV MCH MCHC RDW Plt Count MPV Absolute Neuts (auto) Neutrophils % Lymphocytes % Monocytes % Eosinophils % Basophils % Nucleated RBC % Sodium 138 138 Potassium 4.7 4.6 Chloride 105 106 Carbon Dioxide 28 27 Anion Gap 5 L 6 L BUN 23 H Creatinine 1.4 H Creat Clearance w eGFR 37.28 Random Glucose 95 Calcium 9.5 Phosphorus Magnesium Total Bilirubin 0.7 AST 18 ALT 17 Alkaline Phosphatase 95 Total Protein 7.7 Albumin 3.8 Blood Type O POSITIVE Antibody Screen Negative 10/30/18 10/30/18 08:15 08:15 WBC 8.8 RBC 4.13 Hgb 13.2 Hct 38.2 MCV 92.5 MCH 31.9 MCHC 34.5 RDW 13.6 Plt Count 217 MPV 8.5 Absolute Neuts (auto) 7.5 Neutrophils % 85.2 H Lymphocytes % 8.2 Monocytes % 6.4 Eosinophils % 0.0 Basophils % 0.2 Nucleated RBC % 0 Sodium 138 Potassium 4.9 Chloride 103 Carbon Dioxide 27 Anion Gap 8 BUN 22 H Creatinine 1.2 Creat Clearance w eGFR 44.54 Random Glucose 117 H Calcium 8.9 Phosphorus 4.7 Magnesium 1.8 Total Bilirubin 0.5 AST 22 ALT 14 Alkaline Phosphatase 83 Total Protein 6.7 Albumin 3.2 L Blood Type Antibody Screen Assessment/Plan POD #1: 1. Multi-level cervical disc disorder with radiculopathy. 2. Multi- level cervical stenosis with neurogenic claudication. 3. Kyphosis. 4. Multi- level cervical segmental instability Operation: 1. C4-C5, C5-C6, C6-C7 discectomies. 2. C5, C6 corpectomies. 3. C4 , C7 partial corpectomies. 4. Insertion biomechanical device (cage) C3-C7. 5. C4-C7 anterior arthrodesis. 6. C4-C7 anterior instrumentation. 7. Bone autograft. 8. Bone allograft. 9. Intra-operative biplanar fluoroscopy. 10. Intra-operative neural monitoring. HTN Pain control O2 as needed Mechanical VTE prophylaxis Incentive Spirometry Restart home meds PT evaluation OOB to chair Dr De La Rosa
--- NOTE | 2018-10-30 11:41 | PN ---
Progress Note (short form) - Note Progress Note: Called to remove HV drain per attending. Pt in ICu. Sitting up in chair. HV with 0ml ouput overnight. Currently no drainage in reservoir. Minimal serosanguinous drainage in tubing. HV taken off suction. Dressing c/d/i, removed, steri-strips intact. Drain removed without issue. Ostium reinforced with steri-strips. New 4x4 and tegaderm placed. message sent to Dr Van Miranda regarding above
--- NOTE | 2018-10-30 13:43 | PN ---
Progress Note (short form) - Note Progress Note: Anesthesiology/Pain: POD #1 - s/p C5-6 corpectomy. VSS. Pt. doing well, sitting up comfortably in bed. Pain score at worst 7-10, but pt. overall satisfied with current management. Will continue LOGISTICS TEAM LEAD at present settings and follow-up tomorrow.
--- NOTE | 2018-10-30 14:29 | PN ---
Physical Exam: SUBJECTIVE: Patient seen and examined. c/o mild pain with swallowing, however stable and no cough, no resp distress OBJECTIVE: Vital Signs Period Temp Pulse Resp BP Sys/Miller Pulse Ox Last 24 Hr 97.1 F-98.9 F 65-117 8-19 130-156/58-83 93-100 PE Neuro: alert, awake, cn 2-12intact HEENT: anterior neck dressing CDI Pulm: CTAB CV: s1 s2 rrr Abd: s nt nd + bs Ext: no le edema Laboratory Results - last 24 hr 10/29/18 10/29/18 10/30/18 10:54 17:35 08:15 WBC 8.8 RBC 4.13 Hgb 13.2 Hct 38.2 MCV 92.5 MCH 31.9 MCHC 34.5 RDW 13.6 Plt Count 217 MPV 8.5 Absolute Neuts (auto) 7.5 Neutrophils % 85.2 H Lymphocytes % 8.2 Monocytes % 6.4 Eosinophils % 0.0 Basophils % 0.2 Nucleated RBC % 0 Sodium 138 Potassium 4.6 Chloride 106 Carbon Dioxide 27 Anion Gap 6 L BUN Creatinine Creat Clearance w eGFR Random Glucose Calcium Phosphorus Magnesium Total Bilirubin AST ALT Alkaline Phosphatase Total Protein Albumin Blood Type O POSITIVE Antibody Screen Negative 10/30/18 08:15 WBC RBC Hgb Hct MCV MCH MCHC RDW Plt Count MPV Absolute Neuts (auto) Neutrophils % Lymphocytes % Monocytes % Eosinophils % Basophils % Nucleated RBC % Sodium 138 Potassium 4.9 Chloride 103 Carbon Dioxide 27 Anion Gap 8 BUN 22 H Creatinine 1.2 Creat Clearance w eGFR 44.54 Random Glucose 117 H Calcium 8.9 Phosphorus 4.7 Magnesium 1.8 Total Bilirubin 0.5 AST 22 ALT 14 Alkaline Phosphatase 83 Total Protein 6.7 Albumin 3.2 L Blood Type Antibody Screen Active Medications Generic Name Dose Route Start Last Admin Trade Name Freq PRN Reason Stop Dose Admin Amlodipine Besylate 5 mg 10/30/18 10:00 10/30/18 09:12 Norvasc - PO 5 mg DAILY YENI Administration Atorvastatin Calcium 20 mg 10/30/18 22:00 Lipitor - PO HS YENI Cholecalciferol 2,000 unit 10/30/18 10:00 10/30/18 09:12 Vitamin D3 - PO 2,000 unit DAILY YENI Administration Dexamethasone Sodium Phosphate 4 mg 10/29/18 19:02 Decadron Injection - IVPUSH ONCE PRN NAUSEA AND/OR VOMITING Diphenhydramine HCl 12.5 mg 10/29/18 19:02 Benadryl Injection - IVPUSH ONCE PRN FOR ITCHING Fentanyl 50 mcg 10/29/18 18:59 Sublimaze Injection - IVPUSH [id number] PRN PAIN-PACU ORDER X 4 DOSES ONLY Hydromorphone HCl 0 mg 10/29/18 19:15 10/29/18 22:10 Dilaudid Volunteer Services Manager - SENIOR BIOINFORMATICS SPECIALIST 11/05/18 19:03 10 mg SENIOR BIOINFORMATICS SPECIALIST YENI Administration Protocol Lactated Ringer's 1,000 mls @ 125 mls/hr 10/29/18 19:00 10/30/18 00:44 Lactated Ringers Solution IV Not Given ASDIR YENI Lactated Ringer's 1,000 mls @ 100 mls/hr 10/29/18 21:45 10/30/18 01:13 Lactated Ringers Solution IV 100 mls/hr ASDIR YENI Administration Famotidine/Sodium Chloride 20 mg in 50 mls @ 100 mls/hr 10/30/18 10:00 09:12 Pepcid 20 Mg Premixed Ivpb - IVPB 100 mls/hr BID YENI Administration Losartan Potassium 100 mg 10/30/18 10:00 10/30/18 09:12 Cozaar - PO 100 mg DAILY YENI Administration Ondansetron HCl 4 mg 10/29/18 18:59 Zofran Injection IVPUSH Q6H PRN NAUSEA AND/OR VOMITING Ondansetron HCl 4 mg 10/29/18 19:02 Zofran Injection IVPUSH Q4H PRN NAUSEA AND/OR VOMITING Ondansetron HCl 4 mg 10/29/18 21:40 Zofran Injection IVPUSH Q6H PRN NAUSEA AND/OR VOMITING Oxycodone HCl 5 mg 10/29/18 21:40 Roxicodone - PO Q4H PRN PAIN LEVEL 4 - 6 Oxycodone HCl 10 mg 10/29/18 21:40 Roxicodone - PO Q4H PRN PAIN LEVEL 7 - 10 Pneumococcal 13-Valent Conj Vacc 0.5 ml 10/29/18 11:23 Prevnar 13 Syringe - IM 10/29/18 11:24 .ONCE ONE Promethazine HCl 12.5 mg 10/29/18 19:02 Phenergan Injection - IVPB Q6H PRN NAUSEA AND/OR VOMITING Senna 1 tab 10/29/18 22:00 10/30/18 13:45 Senna - PO 1 tab TID YENI Administration Sertraline HCl 100 mg 10/29/18 22:00 10/30/18 09:11 Zoloft - PO 100 mg BID YENI Administration Assessment: 68 year old female w/PMH Spinal stenosis s/p C4-C5, C5-C6, C6-C7 discectomies; C5, C6 corpectomies; C4, C7 partial corpectomies; C3-C7 anterior cervical decompression and instrumented fusion w/ Dr. Miranda. Plan: 1. Cervical surgery 10/29 - Post op per ortho - Pain control per anesthesia - Decrease IVF with meat lugger, pt is eating - PT eval 2. HTN - Stable - Norvasc 5mg daily - Cozaar 100m daily Visit type - Emergency Visit Emergency Visit: Yes ED Registration Date: 10/29/18 Care time: The patient presented to the Emergency Department on the above date and was hospitalized for further evaluation of their emergent condition. - New Patient This patient is new to me today: Yes Date on this admission: 10/30/18 - Critical Care Critical Care patient: No
[2018-10-30] MEDS: LACTATED RINGERS SOLUTION 1,000 ML IV SCH (15:40)
[2018-10-30] MEDS: ATORVASTATIN CA 20 MG TABLET (FP) PO SCH (21:46)
[2018-10-31] MEDS: diphenhydrAMINE HCL 25 MG CAPSULE (FP) PO SCH ×2 (00:23→21:12)
[2018-10-31] MEDS: HYDROmorphone *PCA* 10MG/50ML DISP.SYRIN PCA SCH ×2 (00:55→21:34)
[2018-10-31] MEDS: SENNOSIDES 8.6MG TABLET (FP) PO SCH ×2 (06:00→21:12)
[2018-10-31 06:04] LABS: BASO % 0.2 % (0-2.0); EOS % 0.4 % (0-4.5); HEMATOCRIT 34.7 % (32.4-45.2); LYMPH % 13.8 % (8-40); MCH 31.8 pg (25.7-33.7); MCHC 34.7 g/dl (32.0-36.0); MEAN CELL VOLUME 91.8 fl (80-96); MEAN PLT VOLUME 8.5 fl (7.5-11.1); MONO % 9.4 % (3.8-10.2); NEUT % 76.2 % (42.8-82.8); PLATELET COUNT 192 K/MM3 (134-434); RBC 3.78 M/mm3 (3.60-5.2); RDW 13.4 % (11.6-15.6); WHITE BLOOD COUNT 7.3 K/mm3 (4.0-10.0)
[2018-10-31 06:32] LABS: ALBUMIN 3.1 g/dl (3.4-5.0); ALK PHOS 67 U/L (45-117); ANION GAP 6 MMOL/L (8-16); BILIRUBIN,TOTAL 0.9 mg/dL (0.2-1); BLOOD UREA NITROGEN 18 mg/dL (7-18); CALCIUM 8.5 mg/dL (8.5-10.1); CHLORIDE 100 mmol/L (98-107); CO2 28 mmol/L (21-32); CREATININE 1.1 mg/dL (0.55-1.3); GLUCOSE,RANDOM 107 mg/dL (74-106); MAGNESIUM 1.6 mg/dL (1.8-2.4); PHOSPHOROUS 2.6 mg/dL (2.5-4.9); POTASSIUM 3.9 mmol/L (3.5-5.1); SGOT/AST 35 U/L (15-37); SGPT/ALT 15 U/L (13-61); SODIUM 133 mmol/L (136-145); TOT PROT 6.2 g/dl (6.4-8.2)
--- NOTE | 2018-10-31 07:51 | PN ---
Progress Note (short form) - Note Progress Note: SUBJECTIVE: The patient was seen and examined at the bedside, she has complaints of 7/10 posterior neck pain. Remains on WEIGHMASTER LEAD OOB ambulating to bathroom Current Medications Generic Name Dose Route Start Last Admin Trade Name Freq PRN Reason Stop Dose Admin Amlodipine Besylate 5 mg 10/30/18 10:00 10/30/18 09:12 Norvasc - PO 5 mg DAILY YENI Administration Atorvastatin Calcium 20 mg 10/30/18 22:00 10/30/18 21:46 Lipitor - PO 20 mg HS YENI Administration Cholecalciferol 2,000 unit 10/30/18 10:00 10/30/18 09:12 Vitamin D3 - PO 2,000 unit DAILY YENI Administration Dexamethasone Sodium Phosphate 4 mg 10/29/18 19:02 Decadron Injection - IVPUSH ONCE PRN NAUSEA AND/OR VOMITING Diphenhydramine HCl 12.5 mg 10/29/18 19:02 Benadryl Injection - IVPUSH ONCE PRN FOR ITCHING Diphenhydramine HCl 50 mg 10/31/18 00:15 10/31/18 00:23 Benadryl - PO 50 mg HS YENI Administration Hydromorphone HCl 0 mg 10/29/18 19:15 10/31/18 00:55 Dilaudid Oil Well Cable Tool Operator - WEIGHMASTER LEAD 11/05/18 19:03 Not Given WEIGHMASTER LEAD YENI Protocol Famotidine/Sodium Chloride 20 mg in 50 mls @ 100 mls/hr 10/30/18 10:00 21:46 Pepcid 20 Mg Premixed Ivpb - IVPB 100 mls/hr BID YENI Administration Lactated Ringer's 1,000 mls @ 75 mls/hr 10/30/18 14:35 10/30/18 15:40 Lactated Ringers Solution IV 75 mls/hr ASDIR YENI Administration Losartan Potassium 100 mg 10/30/18 10:00 10/30/18 09:12 Cozaar - PO 100 mg DAILY YENI Administration Ondansetron HCl 4 mg 10/29/18 18:59 Zofran Injection IVPUSH Q6H PRN NAUSEA AND/OR VOMITING Ondansetron HCl 4 mg 10/29/18 19:02 Zofran Injection IVPUSH Q4H PRN NAUSEA AND/OR VOMITING Ondansetron HCl 4 mg 10/29/18 21:40 Zofran Injection IVPUSH Q6H PRN NAUSEA AND/OR VOMITING Oxycodone HCl 5 mg 10/29/18 21:40 Roxicodone - PO Q4H PRN PAIN LEVEL 4 - 6 Oxycodone HCl 10 mg 10/29/18 21:40 Roxicodone - PO Q4H PRN PAIN LEVEL 7 - 10 Pneumococcal 13-Valent Conj Vacc 0.5 ml 10/31/18 12:00 Prevnar 13 Syringe - IM 10/31/18 12:01 .ONCE ONE Promethazine HCl 12.5 mg 10/29/18 19:02 Phenergan Injection - IVPB Q6H PRN NAUSEA AND/OR VOMITING Senna 1 tab 10/29/18 22:00 10/31/18 06:00 Senna - PO 1 tab TID YENI Administration Sertraline HCl 100 mg 10/29/18 22:00 10/30/18 21:46 Zoloft - PO 100 mg BID YENI Administration OBJECTIVE: Vital Signs Period Temp Pulse Resp BP Sys/Imller Pulse Ox Last 24 Hr 97.6 F-98.4 F 68-91 14-26 122-151/54-90 97-100 PE General: NAD, A&Ox3 Neck: Anterior dressing, c/d/i Lungs: CTA bilaterally Heart: RRR, S1S2 Abd: Soft, non-tender, non-distended. Normoactive bowel sounds Ext: Warm, well-perfused. No edema CBCD WBC 7.3 K/mm3 (4.0-10.0) 10/31/18 05:15 RBC 3.78 M/mm3 (3.60-5.2) 10/31/18 05:15 Hgb 12.0 GM/dL (10.7-15.3) 10/31/18 05:15 Hct 34.7 % (32.4-45.2) 10/31/18 05:15 MCV 91.8 fl (80-96) 10/31/18 05:15 MCHC 34.7 g/dl (32.0-36.0) 10/31/18 05:15 RDW 13.4 % (11.6-15.6) 10/31/18 05:15 Plt Count 192 K/MM3 (134-434) 10/31/18 05:15 MPV 8.5 fl (7.5-11.1) 10/31/18 05:15 CMP Sodium 133 mmol/L (136-145) L 10/31/18 05:15 Potassium 3.9 mmol/L (3.5-5.1) 10/31/18 05:15 Chloride 100 mmol/L (98-107) 10/31/18 05:15 Carbon Dioxide 28 mmol/L (21-32) 10/31/18 05:15 Anion Gap 6 MMOL/L (8-16) L 10/31/18 05:15 BUN 18 mg/dL (7-18) 10/31/18 05:15 Creatinine 1.1 mg/dL (0.55-1.3) 10/31/18 05:15 Creat Clearance w eGFR 49.25 (>60) 10/31/18 05:15 Random Glucose 107 mg/dL (74-106) H 10/31/18 05:15 Calcium 8.5 mg/dL (8.5-10.1) 10/31/18 05:15 Total Bilirubin 0.9 mg/dL (0.2-1) 10/31/18 05:15 AST 35 U/L (15-37) 10/31/18 05:15 ALT 15 U/L (13-61) 10/31/18 05:15 Alkaline Phosphatase 67 U/L (45-117) 10/31/18 05:15 Total Protein 6.2 g/dl (6.4-8.2) L 10/31/18 05:15 Albumin 3.1 g/dl (3.4-5.0) L 10/31/18 05:15 Assessment: This is a 68 year old female w/PMH Spinal stenosis s/p C4-C5, C5-C6 , C6-C7 discectomies; C5, C6 corpectomies; C4, C7 partial corpectomies; C3-C7 anterior cervical decompression and instrumented fusion w/ Dr. Miranda on 10/29 Plan: 1) Cervical surgery 10/29 - Remains with pain, on WEIGHMASTER LEAD, adjustment per anesthesia - Post op per ortho 2) HTN - Stable - Norvasc 5mg daily - Cozaar 100m daily 3) F/E/N: - Mechanical soft diet - IV fluids 4) Prophylaxis: - OOB ambulating - Walked 300ft with PT yesterday 5) Dispo: - Once pain controlled off WEIGHMASTER LEAD CODE STATUS: FULL CODE Visit type - Emergency Visit Emergency Visit: Yes ED Registration Date: 10/29/18 Care time: The patient presented to the Emergency Department on the above date and was hospitalized for further evaluation of their emergent condition. - New Patient This patient is new to me today: Yes Date on this admission: 10/31/18 - Critical Care Critical Care patient: No
[2018-10-31] MEDS: CHOLECALCIFEROL (VITAMIN D3) 1,000 UNIT TABLET (FP) PO SCH (09:12)
[2018-10-31] MEDS: LOSARTAN POTASSIUM 50 MG TABLET (FP) PO SCH (09:12)
[2018-10-31] MEDS: FAMOTIDINE 20 MG/50 ML IVPB 20 MG/50 ML MG IVPB SCH ×2 (09:12→21:12)
[2018-10-31] MEDS: SERTRALINE HCL 50 MG TABLET (FP) PO SCH ×2 (09:13→21:12)
[2018-10-31] MEDS: amLODIPine BESYLATE 5 MG TABLET (FP) PO SCH (09:13)
[2018-10-31 12:00] VITALS: BMI 23.3
[2018-10-31] MEDS ORDERED: PNEUMOC 13-VAL CONJ-DIP CRM/PF 0.5 ML DISP.SYRIN IM ONE (12:00)
--- NOTE | 2018-10-31 12:49 | PN ---
Teaching Attending Note Name of Resident: Marcos Torres ATTENDING PHYSICIAN STATEMENT I saw and evaluated the patient. I reviewed the resident's note and discussed the case with the resident. I agree with the resident's findings and plan as documented. SUBJECTIVE: Pt seen and examined in the ICU. Pain controlled with current regimen. +flatus. Walked with PT. OBJECTIVE: Vital Signs Period Temp Pulse Resp BP Sys/Miller Pulse Ox Last 24 Hr 98.1 F-98.6 F 75-93 14-26 122-151/54-90 97-97 Intake & Output 10/28/18 10/29/18 10/30/18 10/31/18 23:59 23:59 23:59 23:59 Intake Total 1870 2310 900 Output Total 700 970 Balance 1170 1340 900 Weight 58.287 kg 58.06 kg Gen: NAD at rest Heart: RRR Lung: decreased breath sounds at the bases Abd: soft, nontender Ext: no edema CBC, BMP 10/31/18 05:15 10/31/18 05:15 Active Medications Amlodipine Besylate (Norvasc -) 5 mg PO DAILY [facility] Last Admin: 10/31/18 09:13 Dose: 5 mg Atorvastatin Calcium (Lipitor -) 20 mg PO HS [facility] Last Admin: 10/30/18 21:46 Dose: 20 mg Cholecalciferol (Vitamin D3 -) 2,000 unit PO DAILY [facility] Last Admin: 10/31/18 09:12 Dose: 2,000 unit Dexamethasone Sodium Phosphate (Decadron Injection -) 4 mg IVPUSH ONCE PRN PRN Reason: NAUSEA AND/OR VOMITING Diphenhydramine HCl (Benadryl Injection -) 12.5 mg IVPUSH ONCE PRN PRN Reason: FOR ITCHING Diphenhydramine HCl (Benadryl -) 50 mg PO HS [facility] Last Admin: 10/31/18 00:23 Dose: 50 mg Hydromorphone HCl (Dilaudid System Planning Engineer -) 0 mg CHILDREN'S TUTOR CHILDREN'S TUTOR [facility]; Protocol Stop: 11/05/18 19:03 Last Admin: 10/31/18 00:55 Dose: Not Given Famotidine/Sodium Chloride (Pepcid 20 Mg Premixed Ivpb -) 20 mg in 50 mls @ 100 mls/hr IVPB BID [facility] Last Admin: 10/31/18 09:12 Dose: 100 mls/hr Lactated Ringer's (Lactated Ringers Solution) 1,000 mls @ 75 mls/hr IV ASDIR [facility] Last Admin: 10/30/18 15:40 Dose: 75 mls/hr Losartan Potassium (Cozaar -) 100 mg PO DAILY [facility] Last Admin: 10/31/18 09:12 Dose: 100 mg Ondansetron HCl (Zofran Injection) 4 mg IVPUSH Q6H PRN PRN Reason: NAUSEA AND/OR VOMITING Ondansetron HCl (Zofran Injection) 4 mg IVPUSH Q4H PRN PRN Reason: NAUSEA AND/OR VOMITING Ondansetron HCl (Zofran Injection) 4 mg IVPUSH Q6H PRN PRN Reason: NAUSEA AND/OR VOMITING Oxycodone HCl (Roxicodone -) 5 mg PO Q4H PRN PRN Reason: PAIN LEVEL 4 - 6 Oxycodone HCl (Roxicodone -) 10 mg PO Q4H PRN PRN Reason: PAIN LEVEL 7 - 10 Promethazine HCl (Phenergan Injection -) 12.5 mg IVPB Q6H PRN PRN Reason: NAUSEA AND/OR VOMITING Senna (Senna -) 1 tab PO TID [facility] Last Admin: 10/31/18 06:00 Dose: 1 tab Sertraline HCl (Zoloft -) 100 mg PO BID [facility] Last Admin: 10/31/18 09:13 Dose: 100 mg ASSESSMENT AND PLAN: Cervical Stenosis with Radiculopathy and Neurogenic Claudication HTN - pain control - incentive spirometry - bowel regimen - PO as tolerated - rehab/PT - DVT prophylaxis - can monitor on floor
--- NOTE | 2018-10-31 13:21 | PN ---
Physical Exam: SUBJECTIVE: Patient seen and examined at bedside. POD#2 s/p anterior cervical decompression. Pain well controlled. Tolerating advanced diet. Denies CP,BHAKTA, SOB , abdominal pain, nausea or vomiting. OBJECTIVE: Vital Signs Period Temp Pulse Resp BP Sys/Miller Pulse Ox Last 24 Hr 98.1 F-98.6 F 75-93 14-26 122-151/54-90 97-97 GENERAL:AAOx3, NAD HEAD: NCAT EYES: PERRL, EOMI, sclera anicteric, conjunctiva clear. No ptosis. ENT: moist mucous membranes. Neck: Supple; surgical dressing in place, clean, dry, and intact LUNGS: CTAB, no wheezes, no crackles, no accessory muscle use. HEART: RRR, S1, S2 without murmur, rub or gallop. ABDOMEN: Soft, NTND, NABS, no guarding, no rebound, no hepatosplenomegaly, no masses. EXTREMITIES: 2+ pulses, warm, well-perfused, no edema. NEUROLOGICAL: Cranial nerves II through XII grossly intact. Normal speech, gait not observed. PSYCH: Normal mood, normal affect. SKIN: Warm, dry, normal turgor, no rashes or lesions noted Laboratory Results - last 24 hr 10/31/18 10/31/18 05:15 05:15 WBC 7.3 RBC 3.78 Hgb 12.0 Hct 34.7 MCV 91.8 MCH 31.8 MCHC 34.7 RDW 13.4 Plt Count 192 MPV 8.5 Absolute Neuts (auto) 5.6 Neutrophils % 76.2 Lymphocytes % 13.8 D Monocytes % 9.4 Eosinophils % 0.4 D Basophils % 0.2 Nucleated RBC % 0 Sodium 133 L Potassium 3.9 Chloride 100 Carbon Dioxide 28 Anion Gap 6 L BUN 18 Creatinine 1.1 Creat Clearance w eGFR 49.25 Random Glucose 107 H Calcium 8.5 Phosphorus 2.6 Magnesium 1.6 L Total Bilirubin 0.9 AST 35 ALT 15 Alkaline Phosphatase 67 Total Protein 6.2 L Albumin 3.1 L Active Medications Generic Name Dose Route Start Last Admin Trade Name Freq PRN Reason Stop Dose Admin Amlodipine Besylate 5 mg 10/30/18 10:00 10/31/18 09:13 Norvasc - PO 5 mg DAILY YENI Administration Atorvastatin Calcium 20 mg 10/30/18 22:00 10/30/18 21:46 Lipitor - PO 20 mg HS YENI Administration Cholecalciferol 2,000 unit 10/30/18 10:00 10/31/18 09:12 Vitamin D3 - PO 2,000 unit DAILY YENI Administration Dexamethasone Sodium Phosphate 4 mg 10/29/18 19:02 Decadron Injection - IVPUSH ONCE PRN NAUSEA AND/OR VOMITING Diphenhydramine HCl 12.5 mg 10/29/18 19:02 Benadryl Injection - IVPUSH ONCE PRN FOR ITCHING Diphenhydramine HCl 50 mg 10/31/18 00:15 10/31/18 00:23 Benadryl - PO 50 mg HS YENI Administration Hydromorphone HCl 0 mg 10/29/18 19:15 10/31/18 00:55 Dilaudid Assembler Dc Field Ring - RISK CONSULTING TREASURY DIRECTOR 11/05/18 19:03 Not Given RISK CONSULTING TREASURY DIRECTOR YENI Protocol Famotidine/Sodium Chloride 20 mg in 50 mls @ 100 mls/hr 10/30/18 10:00 09:12 Pepcid 20 Mg Premixed Ivpb - IVPB 100 mls/hr BID YENI Administration Lactated Ringer's 1,000 mls @ 75 mls/hr 10/30/18 14:35 10/30/18 15:40 Lactated Ringers Solution IV 75 mls/hr ASDIR YENI Administration Losartan Potassium 100 mg 10/30/18 10:00 10/31/18 09:12 Cozaar - PO 100 mg DAILY YENI Administration Ondansetron HCl 4 mg 10/29/18 18:59 Zofran Injection IVPUSH Q6H PRN NAUSEA AND/OR VOMITING Ondansetron HCl 4 mg 10/29/18 19:02 Zofran Injection IVPUSH Q4H PRN NAUSEA AND/OR VOMITING Ondansetron HCl 4 mg 10/29/18 21:40 Zofran Injection IVPUSH Q6H PRN NAUSEA AND/OR VOMITING Oxycodone HCl 5 mg 10/29/18 21:40 Roxicodone - PO Q4H PRN PAIN LEVEL 4 - 6 Oxycodone HCl 10 mg 10/29/18 21:40 Roxicodone - PO Q4H PRN PAIN LEVEL 7 - 10 Promethazine HCl 12.5 mg 10/29/18 19:02 Phenergan Injection - IVPB Q6H PRN NAUSEA AND/OR VOMITING Psyllium Hydrophilic Mucilloid 5.85 gm 10/31/18 14:00 Metamucil (Sugar-Free) - PO TID YENI Senna 3 tab 10/31/18 22:00 Senna - PO HS YENI Sertraline HCl 100 mg 10/29/18 22:00 10/31/18 09:13 Zoloft - PO 100 mg BID YENI Administration ASSESSMENT/PLAN: 68F s/p C4-C5, C5-C6, C6-C7 discectomies; C5, C6 corpectomies; C4, C7 partial corpectomies; C3-C7 anterior cervical decompression and instrumented fusion POD #2. PLAN C-spine Surgery POD#[address] Sim's note: -ICU monitoring for 24 hrs for airway observation -HOB elevated to 45 degrees -Post op Ancef IV x 2 doses -Incentive spirometry -alva discontinued. -Neuro checks -Pain control w/ RISK CONSULTING TREASURY DIRECTOR as per anesthesia -Avoid NSAIDS -PT -Soft collar CARDIO Chronic HTN -home meds: norvasc and losartan FEN No fluids indicated Monitor electrolytes -replete as needed Mechanical soft diet; may advance as tolerated PPX DVT: Mechanical prophylaxis only given recent procedure, TEDs and SCDs GI: no need for now Disposition: Will transfer to med/surg as airway is stable. Visit type - Emergency Visit Emergency Visit: Yes ED Registration Date: 10/29/18 Care time: The patient presented to the Emergency Department on the above date and was hospitalized for further evaluation of their emergent condition. - New Patient This patient is new to me today: Yes Date on this admission: 10/31/18 - Critical Care Critical Care patient: Yes Total Critical Care Time (in minutes): 32 Critical Care Statement: The care of this patient involved high complexity decision making to prevent further life threatening deterioration of the patient 's condition and/or to evaluate & treat vital organ system(s) failure or risk of failure.
[2018-10-31] MEDS ORDERED: PT OWN MED DRAWER 7, Y5N ONE ×2 (15:00→17:24)
[2018-10-31] MEDS: PSYLLIUM 5.85 GM PACKET PO SCH ×2 (15:01→21:12)
[2018-10-31] MEDS: LACTATED RINGERS SOLUTION 1,000 ML IV SCH (15:02)
--- NOTE | 2018-10-31 18:35 | PATH ---
Surgical Pathology Report Patient Name: ARIANA PÉREZ [facility]. Rec. 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 Specimen(s) Received C4-C7 CERVICAL DISC Clinical History Cervical disorder Final Diagnosis C4-C7 CERVICAL DISC, CORPECTOMY: FRAGMENTS OF BONE AND CARTILAGINOUS TISSUE WITH DEGENERATIVE CHANGE AND CHONDROCALCINOSIS. Electronically Signed Nelly Prabhakar M.D. Gross Description Received in formalin labeled "C4-C7 cervical disc," is a 2.8 x 1.8 x 0.3 cm aggregate of treviño-brown fragments of fibrocartilaginous tissue. A entry level marketing representative portion is submitted in one cassette. DL/10/30/2018 saudi10/30/2018
[2018-10-31] MEDS: ATORVASTATIN CA 20 MG TABLET (FP) PO SCH (21:12)
[2018-11-01] MEDS: PSYLLIUM 5.85 GM PACKET PO SCH ×3 (06:13→21:33)
[2018-11-01 06:14] LABS: BASO % 0.7 % (0-2.0); EOS % 1.1 % (0-4.5); HEMATOCRIT 35.6 % (32.4-45.2); HEMOGLOBIN 12.4 GM/dL (10.7-15.3); LYMPH % 10.3 % (8-40); MCH 32.3 pg (25.7-33.7); MCHC 34.9 g/dl (32.0-36.0); MEAN CELL VOLUME 92.5 fl (80-96); MEAN PLT VOLUME 8.8 fl (7.5-11.1); MONO % 7.2 % (3.8-10.2); NEUT % 80.7 % (42.8-82.8); PLATELET COUNT 191 K/MM3 (134-434); RBC 3.85 M/mm3 (3.60-5.2)
[2018-11-01 06:44] LABS: ALBUMIN 2.9 g/dl (3.4-5.0); ALK PHOS 63 U/L (45-117); ANION GAP 6 MMOL/L (8-16); BILIRUBIN,TOTAL 0.9 mg/dL (0.2-1); BLOOD UREA NITROGEN 15 mg/dL (7-18); CALCIUM 8.4 mg/dL (8.5-10.1); CHLORIDE 99 mmol/L (98-107); CO2 28 mmol/L (21-32); CREATININE 0.9 mg/dL (0.55-1.3); GLUCOSE,RANDOM 97 mg/dL (74-106); MAGNESIUM 1.6 mg/dL (1.8-2.4); PHOSPHOROUS 2.8 mg/dL (2.5-4.9); POTASSIUM 3.7 mmol/L (3.5-5.1); SGOT/AST 32 U/L (15-37); SGPT/ALT 15 U/L (13-61); SODIUM 134 mmol/L (136-145); TOT PROT 6.2 g/dl (6.4-8.2)
[2018-11-01] MEDS: SERTRALINE HCL 50 MG TABLET (FP) PO SCH ×2 (09:00→21:34)
[2018-11-01] MEDS: CHOLECALCIFEROL (VITAMIN D3) 1,000 UNIT TABLET (FP) PO SCH (09:00)
[2018-11-01] MEDS: amLODIPine BESYLATE 5 MG TABLET (FP) PO SCH (09:00)
[2018-11-01] MEDS: LOSARTAN POTASSIUM 50 MG TABLET (FP) PO SCH (09:00)
[2018-11-01] MEDS: FAMOTIDINE 20 MG/50 ML IVPB 20 MG/50 ML MG IVPB SCH ×2 (09:03→21:33)
[2018-11-01] MEDS ORDERED: HYDROmorphone *PCA* 10MG/50ML DISP.SYRIN PCA ONE (09:30)
--- NOTE | 2018-11-01 12:06 | PN ---
Physical Exam: SUBJECTIVE: Patient seen and examined. Remains in pain, no acute issues with swallowing. OBJECTIVE: Vital Signs Period Temp Pulse Resp BP Sys/Miller Pulse Ox Last 24 Hr 98.2 F-98.9 F 59-90 17-25 117-159/54-70 97-97 PE Neuro: alert, awake, cn 2-12intact HEENT: anterior neck dressing CDI Pulm: CTAB CV: s1 s2 rrr Abd: s nt nd + bs Ext: no le edema Laboratory Results - last 24 hr 11/01/18 11/01/18 05:30 05:30 WBC 8.0 RBC 3.85 Hgb 12.4 Hct 35.6 MCV 92.5 MCH 32.3 MCHC 34.9 RDW 13.0 Plt Count 191 MPV 8.8 Absolute Neuts (auto) 6.4 Neutrophils % 80.7 Lymphocytes % 10.3 D Monocytes % 7.2 Eosinophils % 1.1 D Basophils % 0.7 D Nucleated RBC % 0 Sodium 134 L Potassium 3.7 Chloride 99 Carbon Dioxide 28 Anion Gap 6 L BUN 15 Creatinine 0.9 Creat Clearance w eGFR > 60 Random Glucose 97 Calcium 8.4 L Phosphorus 2.8 Magnesium 1.6 L Total Bilirubin 0.9 AST 32 ALT 15 Alkaline Phosphatase 63 Total Protein 6.2 L Albumin 2.9 L Active Medications Generic Name Dose Route Start Last Admin Trade Name Anatoliyq PRN Reason Stop Dose Admin Amlodipine Besylate 5 mg 10/30/18 10:00 11/01/18 09:00 Norvasc - PO 5 mg DAILY YENI Administration Atorvastatin Calcium 20 mg 10/30/18 22:00 10/31/18 21:12 Lipitor - PO 20 mg HS YENI Administration Cholecalciferol 2,000 unit 10/30/18 10:00 11/01/18 09:00 Vitamin D3 - PO 2,000 unit DAILY YENI Administration Dexamethasone Sodium Phosphate 4 mg 10/29/18 19:02 Decadron Injection - IVPUSH ONCE PRN NAUSEA AND/OR VOMITING Diphenhydramine HCl 12.5 mg 10/29/18 19:02 Benadryl Injection - IVPUSH ONCE PRN FOR ITCHING Diphenhydramine HCl 50 mg 10/31/18 00:15 10/31/18 21:12 Benadryl - PO 50 mg HS YENI Administration Hydromorphone HCl 0 mg 10/29/18 19:15 10/31/18 21:34 Dilaudid Interventional Physician - TABLEAU LEAD 11/05/18 19:03 Not Given TABLEAU LEAD YENI Protocol Famotidine/Sodium Chloride 20 mg in 50 mls @ 100 mls/hr 10/30/18 10:00 09:03 Pepcid 20 Mg Premixed Ivpb - IVPB 100 mls/hr BID YENI Administration Lactated Ringer's 1,000 mls @ 75 mls/hr 10/30/18 14:35 10/31/18 15:02 Lactated Ringers Solution IV 75 mls/hr ASDIR YENI Administration Losartan Potassium 100 mg 10/30/18 10:00 11/01/18 09:00 Cozaar - PO 100 mg DAILY YENI Administration Ondansetron HCl 4 mg 10/29/18 18:59 Zofran Injection IVPUSH Q6H PRN NAUSEA AND/OR VOMITING Ondansetron HCl 4 mg 10/29/18 19:02 Zofran Injection IVPUSH Q4H PRN NAUSEA AND/OR VOMITING Ondansetron HCl 4 mg 10/29/18 21:40 Zofran Injection IVPUSH Q6H PRN NAUSEA AND/OR VOMITING Oxycodone HCl 5 mg 10/29/18 21:40 Roxicodone - PO Q4H PRN PAIN LEVEL 4 - 6 Oxycodone HCl 10 mg 10/29/18 21:40 Roxicodone - PO Q4H PRN PAIN LEVEL 7 - 10 Promethazine HCl 12.5 mg 10/29/18 19:02 Phenergan Injection - IVPB Q6H PRN NAUSEA AND/OR VOMITING Psyllium Hydrophilic Mucilloid 5.85 gm 10/31/18 14:00 11/01/18 06:13 Metamucil (Sugar-Free) - PO 5.85 gm TID YENI Administration Senna 3 tab 10/31/18 22:00 10/31/18 21:12 Senna - PO 3 tab HS YENI Administration Sertraline HCl 100 mg 10/29/18 22:00 11/01/18 09:00 Zoloft - PO 100 mg BID YENI Administration Assessment: This is a 68 year old female w/PMH Spinal stenosis s/p C4-C5, C5-C6 , C6-C7 discectomies; C5, C6 corpectomies; C4, C7 partial corpectomies; C3-C7 anterior cervical decompression and instrumented fusion w/ Dr. Miranda on 10/29 Plan: 1. Cervical surgery 10/29 - Remains with pain, on TABLEAU LEAD, adjustment per anesthesia - Post op per ortho 2. HTN - Mildly elevated likely d/t pain - Change fluids NS 60cc/hr - Norvasc 5mg daily - Cozaar 100m daily 3. - OOB ambulating - Walked 300ft with PT yesterday 4. Mild hyponatremia - Stop LR, start NS with TABLEAU LEAD, gentle hydration CODE STATUS: FULL CODE Visit type - Emergency Visit Emergency Visit: Yes ED Registration Date: 10/29/18 Care time: The patient presented to the Emergency Department on the above date and was hospitalized for further evaluation of their emergent condition. - New Patient This patient is new to me today: No - Critical Care Critical Care patient: No
[2018-11-01] MEDS ORDERED: MAGNESIUM SULF 50% (8.12 MEQ/2 ML-1 GM VIAL) IVPB ONE (12:07)
--- NOTE | 2018-11-01 12:49 | PN ---
Teaching Attending Note Name of Resident: Irma Echevarria ATTENDING PHYSICIAN STATEMENT I saw and evaluated the patient. I reviewed the resident's note and discussed the case with the resident. I agree with the resident's findings and plan as documented. SUBJECTIVE: Patient seen and examined in the ICU. Awake and alert. No CP or SOB. No issues with breathing overnight but slight discomfort on swallowing. (+) back and upper back pain Intake & Output 10/29/18 10/30/18 10/31/18 11/01/18 23:59 23:59 23:59 23:59 Intake Total 1870 2310 2530 1050 Output Total 700 970 Balance 1170 1340 2530 1050 Weight 128 lb 8 oz 128 lb Last Vital Signs Temp Pulse Resp BP Pulse Ox 98.7 F 86 20 147/62 97 11/01/18 06:00 11/01/18 10:00 11/01/18 10:00 11/01/18 10:00 11/01/18 10:00 Active Medications Amlodipine Besylate (Norvasc -) 5 mg PO DAILY [facility] Last Admin: 11/01/18 09:00 Dose: 5 mg Atorvastatin Calcium (Lipitor -) 20 mg PO [facility] Last Admin: 10/31/18 21:12 Dose: 20 mg Cholecalciferol (Vitamin D3 -) 2,000 unit PO DAILY [facility] Last Admin: 11/01/18 09:00 Dose: 2,000 unit Dexamethasone Sodium Phosphate (Decadron Injection -) 4 mg IVPUSH ONCE PRN PRN Reason: NAUSEA AND/OR VOMITING Diphenhydramine HCl (Benadryl Injection -) 12.5 mg IVPUSH ONCE PRN PRN Reason: FOR ITCHING Diphenhydramine HCl (Benadryl -) 50 mg PO HS [facility] Last Admin: 10/31/18 21:12 Dose: 50 mg Hydromorphone HCl (Dilaudid Customer Servicer -) 0 mg LAMP REPLACER LAMP REPLACER [facility]; Protocol Stop: 11/05/18 19:03 Last Admin: 10/31/18 21:34 Dose: Not Given Famotidine/Sodium Chloride (Pepcid 20 Mg Premixed Ivpb -) 20 mg in 50 mls @ 100 mls/hr IVPB BID [facility] Last Admin: 11/01/18 09:03 Dose: 100 mls/hr Sodium Chloride (Normal Saline -) 1,000 mls @ 60 mls/hr IV ASDIR [facility] Losartan Potassium (Cozaar -) 100 mg PO DAILY [facility] Last Admin: 11/01/18 09:00 Dose: 100 mg Ondansetron HCl (Zofran Injection) 4 mg IVPUSH Q6H PRN PRN Reason: NAUSEA AND/OR VOMITING Ondansetron HCl (Zofran Injection) 4 mg IVPUSH Q4H PRN PRN Reason: NAUSEA AND/OR VOMITING Ondansetron HCl (Zofran Injection) 4 mg IVPUSH Q6H PRN PRN Reason: NAUSEA AND/OR VOMITING Oxycodone HCl (Roxicodone -) 5 mg PO Q4H PRN PRN Reason: PAIN LEVEL 4 - 6 Oxycodone HCl (Roxicodone -) 10 mg PO Q4H PRN PRN Reason: PAIN LEVEL 7 - 10 Promethazine HCl (Phenergan Injection -) 12.5 mg IVPB Q6H PRN PRN Reason: NAUSEA AND/OR VOMITING Psyllium Hydrophilic Mucilloid (Metamucil (Sugar-Free) -) 5.85 gm PO TID [facility] Last Admin: 11/01/18 06:13 Dose: 5.85 gm Senna (Senna -) 3 tab PO HS [facility] Last Admin: 10/31/18 21:12 Dose: 3 tab Sertraline HCl (Zoloft -) 100 mg PO BID [facility] Last Admin: 11/01/18 09:00 Dose: 100 mg Constitutional: Yes: NAD Eyes: Yes: Conjunctiva Clear, EOM Intact, PERRL HENT: Yes: Atraumatic, Normocephalic, Other (dry mucous membranes). No: Thrush Neck: Yes: dressing is CDI with drain in place Respiratory: Yes: Clear, On Nasal O2 Gastrointestinal: Yes: Soft Edema: No Peripheral Pulses WNL: Yes (radial b/l and DP b/l) Wound/Incision: Yes: Clean/Dry, Other (drain is draining sangious fluid) Neurological: Yes: Alert, Oriented. No: Loss of Sensation, Numbness, Tingling Labs: Laboratory Results - last 24 hr 11/01/18 11/01/18 05:30 05:30 WBC 8.0 RBC 3.85 Hgb 12.4 Hct 35.6 MCV 92.5 MCH 32.3 MCHC 34.9 RDW 13.0 Plt Count 191 MPV 8.8 Absolute Neuts (auto) 6.4 Neutrophils % 80.7 Lymphocytes % 10.3 D Monocytes % 7.2 Eosinophils % 1.1 D Basophils % 0.7 D Nucleated RBC % 0 Sodium 134 L Potassium 3.7 Chloride 99 Carbon Dioxide 28 Anion Gap 6 L BUN 15 Creatinine 0.9 Creat Clearance w eGFR > 60 Random Glucose 97 Calcium 8.4 L Phosphorus 2.8 Magnesium 1.6 L Total Bilirubin 0.9 AST 32 ALT 15 Alkaline Phosphatase 63 Total Protein 6.2 L Albumin 2.9 L Assessment/Plan POD #3: 1. Multi-level cervical disc disorder with radiculopathy. 2. Multi- level cervical stenosis with neurogenic claudication. 3. Kyphosis. 4. Multi- level cervical segmental instability Operation: 1. C4-C5, C5-C6, C6-C7 discectomies. 2. C5, C6 corpectomies. 3. C4 , C7 partial corpectomies. 4. Insertion biomechanical device (cage) C3-C7. 5. C4-C7 anterior arthrodesis. 6. C4-C7 anterior instrumentation. 7. Bone autograft. 8. Bone allograft. 9. Intra-operative biplanar fluoroscopy. 10. Intra-operative neural monitoring. HTN Pain control O2 as needed Mechanical VTE prophylaxis Incentive Spirometry Titrate home meds PT evaluation OOB to chair Floor when OK with Ortho Dr De La Rosa
[2018-11-01] MEDS: SODIUM CHLORIDE 1,000 ML IV SCH (12:58)
--- NOTE | 2018-11-01 14:09 | PN ---
Progress Note (short form) - Note Progress Note: SUBJECTIVE Patient seen and examined at the bedside. No chest pain or shortness of breath. Reports that her pain is well-controlled. OBJECTIVE Vital Signs Temperature 98.7 F 11/01/18 06:00 Pulse Rate 86 11/01/18 10:00 Respiratory Rate 20 11/01/18 10:00 Blood Pressure 147/62 11/01/18 10:00 O2 Sat by Pulse Oximetry (%) 97 11/01/18 10:00 General: Awake, alert, and fully oriented, in no acute distress Head: No signs of trauma Eyes: EOMI, sclera anicteric ENT: Dry mucus membranes Neck: Supple; surgical dressing in place, clean, dry, and intact Lungs: Lungs clear, Normal breath sounds Cardio: Regular rhythm, S1 and S2 present Abdomen: Soft, nontender Extremities: Normal range of motion, Distal pulses present SKIN: Warm, Dry, normal turgor Neurologic: Cranial nerves II through XII grossly intact. Normal speech ASSESSMENT 68F s/p C4-C5, C5-C6, C6-C7 discectomies; C5, C6 corpectomies; C4, C7 partial corpectomies; C3-C7 anterior cervical decompression and instrumented fusion POD #3. PLAN C-spine Surgery POD#[address] Miranda's note: -ICU monitoring for 24 hrs for airway observation -OK to downgrade on 10/31/18 -HOB elevated to 45 degrees -Post op Ancef IV x 2 doses -Incentive spirometry -Neuro checks -Pain control w/ INVESTMENT STRATEGIST no longer needed per patient -Avoid NSAIDS -PT -Soft collar in AM CARDIO Chronic HTN -home meds: norvasc and losartan FEN No fluids indicated Monitor electrolytes -replete as needed Mechanical soft diet; may advance as tolerated PPX DVT: Mechanical prophylaxis only given recent procedure, TEDs and SCDs GI: no need for now Disposition: Per neurosurgery, OK to downgrade to floor.
[2018-11-01] MEDS ORDERED: CYCLOBENZAPRINE HCL 10 MG TABLET (FP) PO PRN (15:04)
[2018-11-01] MEDS ORDERED: PROMETHAZINE HCL 25 MG/1 ML VIAL IVPB PRN (16:35)
[2018-11-01] MEDS ORDERED: ONDANSETRON 4 MG/2 ML VIAL IVPUSH PRN ×3 (16:35)
[2018-11-01] MEDS ORDERED: HYDROmorphone *PCA* 10MG/50ML DISP.SYRIN PCA SCH (16:35)
[2018-11-01] MEDS ORDERED: oxyCODONE HCL 5 MG TABLET PO PRN (16:35)
[2018-11-01] MEDS ORDERED: DEXAMETHASONE SOD PHOSPHATE 4 MG/1 ML VIAL IVPUSH PRN (16:35)
--- NOTE | 2018-11-01 20:52 | PN ---
Progress Note (short form) - Note Progress Note: POD 3 IN [facility] Walking in the hallway Feeling well No neurological change C/O mild trapezial tenderness. Voice High pitched but improving No swelling and bandage is dry Swallowing soft food Assess Doing well PLAN D/c home tomorrow See in office 1 week Leave original dressing Pain mx on discharge
[2018-11-01] MEDS: SENNOSIDES 8.6MG TABLET (FP) PO SCH (21:33)
[2018-11-01] MEDS ORDERED: diphenhydrAMINE HCL 25 MG CAPSULE (FP) PO SCH (22:00)
[2018-11-01] MEDS ORDERED: ATORVASTATIN CA 20 MG TABLET (FP) PO SCH (22:00)
[2018-11-02 06:24] LABS: ANION GAP 7 MMOL/L (8-16); BLOOD UREA NITROGEN 14 mg/dL (7-18); CALCIUM 7.8 mg/dL (8.5-10.1); CHLORIDE 103 mmol/L (98-107); CO2 26 mmol/L (21-32); CREATININE 0.9 mg/dL (0.55-1.3); GLUCOSE,RANDOM 88 mg/dL (74-106); POTASSIUM 3.6 mmol/L (3.5-5.1); SODIUM 137 mmol/L (136-145)
[2018-11-02] MEDS: PSYLLIUM 5.85 GM PACKET PO SCH (06:26)
[2018-11-02] MEDS: oxyCODONE HCL 5 MG TABLET PO PRN ×2 (06:29→13:12)
[2018-11-02] MEDS: ACETAMINOPHEN 325 MG TABLET (FP) PO PRN ×2 (06:30→13:11)
--- NOTE | 2018-11-02 08:25 | PN ---
Progress Note, Physician History of Present Illness: 68 year old female w/PMH Spinal stenosis s/p C4-C5, C5-C6, C6-C7 discectomies; C5, C6 corpectomies; C4, C7 partial corpectomies; C3-C7 anterior cervical decompression and instrumented fusion by Dr. Miranda on 10/29 - Current Medication List Current Medications: Active Medications Acetaminophen (Tylenol -) 650 mg PO Q6H PRN PRN Reason: FEVER Last Admin: 11/02/18 06:30 Dose: 650 mg Amlodipine Besylate (Norvasc -) 5 mg PO DAILY [facility] Atorvastatin Calcium (Lipitor -) 20 mg PO HS [facility] Last Admin: 11/01/18 21:32 Dose: 20 mg Cholecalciferol (Vitamin D3 -) 2,000 unit PO DAILY [facility] Cyclobenzaprine HCl (Flexeril -) 10 mg PO Q8H PRN PRN Reason: MUSCLE SPASMS Last Admin: 11/01/18 15:28 Dose: 10 mg Dexamethasone Sodium Phosphate (Decadron Injection -) 4 mg IVPUSH ONCE PRN PRN Reason: NAUSEA AND/OR VOMITING Diphenhydramine HCl (Benadryl Injection -) 12.5 mg IVPUSH ONCE PRN PRN Reason: FOR ITCHING Diphenhydramine HCl (Benadryl -) 50 mg PO HS [facility] Last Admin: 11/01/18 21:32 Dose: 50 mg Sodium Chloride (Normal Saline -) 1,000 mls @ 60 mls/hr IV ASDIR [facility] Last Admin: 11/01/18 12:58 Dose: 60 mls/hr Famotidine/Sodium Chloride (Pepcid 20 Mg Premixed Ivpb -) 20 mg in 50 mls @ 100 mls/hr IVPB BID [facility] Last Admin: 11/01/18 21:33 Dose: 100 mls/hr Losartan Potassium (Cozaar -) 100 mg PO DAILY [facility] Ondansetron HCl (Zofran Injection) 4 mg IVPUSH Q4H PRN PRN Reason: NAUSEA AND/OR VOMITING Oxycodone HCl (Roxicodone -) 5 mg PO Q4H PRN PRN Reason: PAIN LEVEL 4 - 6 Last Admin: 11/02/18 06:29 Dose: 5 mg Oxycodone HCl (Roxicodone -) 10 mg PO Q4H PRN PRN Reason: PAIN LEVEL 7 - 10 Last Admin: 11/01/18 21:35 Dose: 10 mg Promethazine HCl (Phenergan Injection -) 12.5 mg IVPB Q6H PRN PRN Reason: NAUSEA AND/OR VOMITING Psyllium Hydrophilic Mucilloid (Metamucil (Sugar-Free) -) 5.85 gm PO TID [facility] Last Admin: 11/02/18 06:26 Dose: 5.85 gm Senna (Senna -) 3 tab PO HS [facility] Last Admin: 11/01/18 21:33 Dose: 3 tab Sertraline HCl (Zoloft -) 100 mg PO BID [facility] Last Admin: 11/01/18 21:34 Dose: 100 mg - Objective Vital Signs: Vital Signs Temperature 97.5 F L 11/02/18 06:00 Pulse Rate 86 11/02/18 06:00 Respiratory Rate 18 11/02/18 06:00 Blood Pressure 144/72 11/02/18 06:00 O2 Sat by Pulse Oximetry (%) 97 11/01/18 19:48 Labs: CBC, BMP 11/01/18 05:30 11/02/18 05:30 Problem List - Problems (1) Spinal stenosis Code(s): M48.00 - SPINAL STENOSIS, SITE UNSPECIFIED Qualifiers: Spinal region: unspecified Qualified Code(s): M48.00 - Spinal stenosis, site unspecified (2) Gait abnormality Code(s): R26.9 - UNSPECIFIED ABNORMALITIES OF GAIT AND MOBILITY
[2018-11-02 08:37] LABS: BASO % 0.3 % (0-2.0); EOS % 1.5 % (0-4.5); HEMATOCRIT 33.7 % (32.4-45.2); HEMOGLOBIN 11.9 GM/dL (10.7-15.3); LYMPH % 12.4 % (8-40); MCH 32.5 pg (25.7-33.7); MCHC 35.3 g/dl (32.0-36.0); MEAN CELL VOLUME 92.2 fl (80-96); MEAN PLT VOLUME 8.9 fl (7.5-11.1); MONO % 7.6 % (3.8-10.2); NEUT % 78.2 % (42.8-82.8); PLATELET COUNT 199 K/MM3 (134-434); RBC 3.65 M/mm3 (3.60-5.2); RDW 13.1 % (11.6-15.6); WHITE BLOOD COUNT 6.1 K/mm3 (4.0-10.0)
[2018-11-02] MEDS: FAMOTIDINE 20 MG/50 ML IVPB 20 MG/50 ML MG IVPB SCH (09:44)
[2018-11-02] MEDS: SERTRALINE HCL 50 MG TABLET (FP) PO SCH (09:45)
[2018-11-02] MEDS ORDERED: CHOLECALCIFEROL (VITAMIN D3) 1,000 UNIT TABLET (FP) PO SCH (10:00)
[2018-11-02] MEDS ORDERED: amLODIPine BESYLATE 5 MG TABLET (FP) PO SCH (10:00)
[2018-11-02] MEDS ORDERED: LOSARTAN POTASSIUM 50 MG TABLET (FP) PO SCH (10:00)
--- NOTE | 2018-11-02 11:01 | PN ---
Teaching Attending Note Name of Resident: Irma Echevarria ATTENDING PHYSICIAN STATEMENT I saw and evaluated the patient. I reviewed the resident's note and discussed the case with the resident. I agree with the resident's findings and plan as documented. SUBJECTIVE: Patient seen and examined in the ICU. Awake and alert. No CP or SOB. No issues with breathing overnight. Swallowing improving. Less overall pain. Intake & Output 10/30/18 10/31/18 11/01/18 11/02/18 23:59 23:59 23:59 23:59 Intake Total 2310 2530 1870 870 Output Total 970 Balance 1340 2530 1870 870 Weight 128 lb 8 oz 128 lb Last Vital Signs Temp Pulse Resp BP Pulse Ox 98.6 F 67 16 115/52 L 99 11/02/18 08:00 11/02/18 08:00 11/02/18 08:00 11/02/18 08:00 11/02/18 08:00 Active Medications Acetaminophen (Tylenol -) 650 mg PO Q6H PRN PRN Reason: FEVER Last Admin: 11/02/18 06:30 Dose: 650 mg Amlodipine Besylate (Norvasc -) 5 mg PO DAILY [facility] Last Admin: 11/02/18 09:44 Dose: 5 mg Atorvastatin Calcium (Lipitor -) 20 mg PO [facility] Last Admin: 11/01/18 21:32 Dose: 20 mg Cholecalciferol (Vitamin D3 -) 2,000 unit PO DAILY [facility] Last Admin: 11/02/18 09:45 Dose: 2,000 unit Cyclobenzaprine HCl (Flexeril -) 10 mg PO Q8H PRN PRN Reason: MUSCLE SPASMS Last Admin: 11/01/18 15:28 Dose: 10 mg Dexamethasone Sodium Phosphate (Decadron Injection -) 4 mg IVPUSH ONCE PRN PRN Reason: NAUSEA AND/OR VOMITING Diphenhydramine HCl (Benadryl Injection -) 12.5 mg IVPUSH ONCE PRN PRN Reason: FOR ITCHING Diphenhydramine HCl (Benadryl -) 50 mg PO [facility] Last Admin: 11/01/18 21:32 Dose: 50 mg Sodium Chloride (Normal Saline -) 1,000 mls @ 60 mls/hr IV ASDIR [facility] Last Admin: 11/01/18 12:58 Dose: 60 mls/hr Famotidine/Sodium Chloride (Pepcid 20 Mg Premixed Ivpb -) 20 mg in 50 mls @ 100 mls/hr IVPB BID [facility] Last Admin: 11/02/18 09:44 Dose: 100 mls/hr Losartan Potassium (Cozaar -) 100 mg PO DAILY [facility] Last Admin: 11/02/18 09:44 Dose: 100 mg Ondansetron HCl (Zofran Injection) 4 mg IVPUSH Q4H PRN PRN Reason: NAUSEA AND/OR VOMITING Oxycodone HCl (Roxicodone -) 5 mg PO Q4H PRN PRN Reason: PAIN LEVEL 4 - 6 Last Admin: 11/02/18 06:29 Dose: 5 mg Oxycodone HCl (Roxicodone -) 10 mg PO Q4H PRN PRN Reason: PAIN LEVEL 7 - 10 Last Admin: 11/01/18 21:35 Dose: 10 mg Promethazine HCl (Phenergan Injection -) 12.5 mg IVPB Q6H PRN PRN Reason: NAUSEA AND/OR VOMITING Psyllium Hydrophilic Mucilloid (Metamucil (Sugar-Free) -) 5.85 gm PO TID [facility] Last Admin: 11/02/18 06:26 Dose: 5.85 gm Senna (Senna -) 3 tab PO HS [facility] Last Admin: 11/01/18 21:33 Dose: 3 tab Sertraline HCl (Zoloft -) 100 mg PO BID [facility] Last Admin: 11/02/18 09:45 Dose: 100 mg Constitutional: Yes: NAD Eyes: Yes: Conjunctiva Clear, EOM Intact, PERRL HENT: Yes: Atraumatic, Normocephalic, Other (dry mucous membranes). No: Thrush Neck: Yes: dressing is CDI with drain in place Respiratory: Yes: Clear, On Nasal O2 Gastrointestinal: Yes: Soft Edema: No Peripheral Pulses WNL: Yes (radial b/l and DP b/l) Wound/Incision: Yes: Clean/Dry, Other (drain is draining sangious fluid) Neurological: Yes: Alert, Oriented. No: Loss of Sensation, Numbness, Tingling Labs: Laboratory Results - last 24 hr 11/02/18 11/02/18 11/02/18 05:30 05:30 05:30 WBC 6.1 RBC 3.65 Hgb 11.9 Hct 33.7 MCV 92.2 MCH 32.5 MCHC 35.3 RDW 13.1 Plt Count 199 MPV 8.9 Absolute Neuts (auto) 4.8 Neutrophils % 78.2 Lymphocytes % 12.4 D Monocytes % 7.6 Eosinophils % 1.5 Basophils % 0.3 Nucleated RBC % 0 Sodium 137 Potassium 3.6 Chloride 103 Carbon Dioxide 26 Anion Gap 7 L BUN 14 Creatinine 0.9 Creat Clearance w eGFR > 60 Random Glucose 88 Calcium 7.8 L Phosphorus 2.8 Magnesium 2.0 Assessment/Plan POD #4: 1. Multi-level cervical disc disorder with radiculopathy. 2. Multi- level cervical stenosis with neurogenic claudication. 3. Kyphosis. 4. Multi- level cervical segmental instability Operation: 1. C4-C5, C5-C6, C6-C7 discectomies. 2. C5, C6 corpectomies. 3. C4 , C7 partial corpectomies. 4. Insertion biomechanical device (cage) C3-C7. 5. C4-C7 anterior arthrodesis. 6. C4-C7 anterior instrumentation. 7. Bone autograft. 8. Bone allograft. 9. Intra-operative biplanar fluoroscopy. 10. Intra-operative neural monitoring. HTN Pain control O2 as needed Mechanical VTE prophylaxis Incentive Spirometry Titrate home meds PT evaluation OOB to chair D/C planning Dr De La Rosa
[2018-11-02 11:03] VITALS: BP 120/62; PULSE 78; TEMP 98.2
--- NOTE | 2018-11-02 11:03 | PN ---
Progress Note (short form) - Note Progress Note: SUBJECTIVE Patient seen and examined at the bedside. No chest pain or shortness of breath. Reports that her pain is well-controlled. OBJECTIVE Vital Signs Temperature 98.2 F 11/02/18 10:00 Pulse Rate 78 11/02/18 10:00 Respiratory Rate 16 11/02/18 10:00 Blood Pressure 120/62 11/02/18 10:00 O2 Sat by Pulse Oximetry (%) 99 11/02/18 08:00 General: Awake, alert, and fully oriented, in no acute distress Head: No signs of trauma Eyes: EOMI, sclera anicteric ENT: Dry mucus membranes Neck: Supple; surgical dressing in place, clean, dry, and intact Lungs: Lungs clear, Normal breath sounds Cardio: Regular rhythm, S1 and S2 present Abdomen: Soft, nontender Extremities: Normal range of motion, Distal pulses present SKIN: Warm, Dry, normal turgor Neurologic: Cranial nerves II through XII grossly intact. Normal speech ASSESSMENT 68F s/p C4-C5, C5-C6, C6-C7 discectomies; C5, C6 corpectomies; C4, C7 partial corpectomies; C3-C7 anterior cervical decompression and instrumented fusion POD #4. PLAN C-spine Surgery POD#[address] Miranda's note: -OK to dc today -HOB elevated to 45 degrees -Post op Ancef IV x 2 doses -Incentive spirometry -Neuro checks -Pain control w/ SPLITTER HAND no longer needed per patient -Avoid NSAIDS -PT -Soft collar in AM CARDIO Chronic HTN -home meds: norvasc and losartan FEN No fluids indicated Monitor electrolytes -replete as needed Mechanical soft diet; may advance as tolerated PPX DVT: Mechanical prophylaxis only given recent procedure, TEDs and SCDs GI: no need for now Disposition: Per neurosurgery, OK to discharge today.
--- NOTE | 2018-11-02 11:28 | DS ---
Physical Examination Vital Signs: Vital Signs Temperature 98.2 F 11/02/18 10:00 Pulse Rate 78 11/02/18 10:00 Respiratory Rate 16 11/02/18 10:00 Blood Pressure 120/62 11/02/18 10:00 O2 Sat by Pulse Oximetry (%) 99 11/02/18 08:00 General: Awake, alert, and fully oriented, in no acute distress Head: No signs of trauma Eyes: EOMI, sclera anicteric ENT: Dry mucus membranes Neck: Supple; surgical dressing in place, clean, dry, and intact Lungs: Lungs clear, Normal breath sounds Cardio: Regular rhythm, S1 and S2 present Abdomen: Soft, nontender Extremities: Normal range of motion, Distal pulses present SKIN: Warm, Dry, normal turgor Neurologic: Cranial nerves II through XII grossly intact. Normal speech Labs: CBC, BMP 11/02/18 05:30 11/02/18 05:30 Discharge Summary Reason For Visit: OTHER CERVICAL DISORDER Hospital Course: 68 year old female H/O HTN, Hypercholasterelemia, anxiety Spinal stenosis s/p C4 -C5, C5-C6, C6-C7 discectomies; C5, C6 corpectomies; C4, C7 partial corpectomies ; C3-C7 anterior cervical decompression and instrumented fusion by Dr. Miranda on 10/29, ptient clinical condition improved hemodynamically stable is cleared to DC Home by operating team. Condition: Stable - Instructions Referrals: Mj Antunez MD [Staff Physician] - 2 Weeks Tino Miranda MD [Staff Physician] - 1 Week Disposition: HOME - Home Medications Comprehensive Discharge Medication List: Ambulatory Orders Cyanocobalamin (Vitamin B-12) [B-12] 5,000 mcg SL DAILY 08/18/16 Diphenhydramine HCl [Benadryl] 50 mg PO HS capsule 08/18/16 Psyllium Husk (with Sugar) [Metamucil Packet] 3.4 gm PO TID 08/18/16 Sennosides [Senokot] 8.6 mg PO TID tablet 08/18/16 Cholecalciferol (Vitamin D3) [Vitamin D3] 2,000 unit PO DAILY 02/19/18 Tramadol HCl 50 mg PO BID PRN 02/19/18 Cyclobenzaprine HCl [Flexeril -] 10 mg PO Q8H PRN #20 tablet 11/02/18 Psyllium [Metamucil (Sugar-Free) -] 5.85 gm PO TID #1 packet 11/02/18 oxyCODONE HCL [Roxicodone -] 5 mg PO Q4H PRN #30 tablet MDD 6 tabs 11/02/18
[2018-11-02] MEDS: SODIUM CHLORIDE 1,000 ML IV SCH (12:15)
== END 2018-11-02 13:30 | disposition home or self-care (01) | DRG 472 ==
LOC: JSAMEDAYSX 10:36 → JICU 22:58
PROVIDERS: ADMIT Orthopaedic Surgery Orthopaedic Surgery of the Spine; ATTEND Internal Medicine
PROC: 0RT30ZZ Resection of Cervical Vertebral Disc, Open Approach (ICD-10-PCS; 2018-10-29)
PROC: 4A1004G Monitoring of Central Nervous Electrical Activity, Intraoperative, Open Approach (ICD-10-PCS; 2018-10-29)
PROC: B01BZZZ Fluoroscopy of Spinal Cord (ICD-10-PCS; 2018-10-29)
PROC: 0RG20A0 Fusion of 2 or more Cervical Vertebral Joints with Interbody Fusion Device, Anterior Approach, Anterior Column, Open Approach (ICD-10-PCS; principal; 2018-10-29 12:00)
DX: M48.02 Spinal stenosis, cervical region (principal); E87.1 Hypo-osmolality and hyponatremia; M54.12 Radiculopathy, cervical region; M40.299 Other kyphosis, site unspecified; I10 Essential (primary) hypertension; F41.9 Anxiety disorder, unspecified; E78.00 Pure hypercholesterolemia, unspecified
CPT/HCPCS: 36415; 71045-TC-FY; 76000-TC-FY; 80048; 80051; 80053; 83735; 84100; 85025; 86850; 86900; 86901; 88304-TC; 94760; 97116-GP; 97161-GP; J0131; J7030

== ENCOUNTER 2020-10-14 09:41 | Emergency (ER) | payer BC ==
[2020-10-14 10:01] VITALS: BP 136/78; PULSE 80; TEMP 98.8; BMI 22.8
[2020-10-14 10:34] LABS: EOS % 1.9 % (0-4.5); HEMATOCRIT 40.5 % (32.4-45.2); HEMOGLOBIN 13.4 GM/dl (10.7-15.3); LYMPH % 15.5 % (8-40); MCH 31.4 pg (25.7-33.7); MCHC 33.1 g/dl (32.0-36.0); MONO % 7.8 % (3.8-10.2); NEUT % 72.8 % (42.8-82.8); PLATELET COUNT 199 K/MM3 (134-434); RBC 4.26 M/mm3 (3.60-5.2); RDW 13.1 % (11.6-15.6); WHITE BLOOD COUNT 8.8 K/mm3 (4.0-10.8)
[2020-10-14 10:37] LABS: ALBUMIN 4.3 g/dl (3.4-5.0); ALK PHOS 74 U/L (45-117); ANION GAP 8 MMOL/L (8-16); BILIRUBIN,TOTAL 0.9 mg/dl (0.2-1); CALCIUM 9.5 mg/dl (8.5-10); CHLORIDE 108 mmol/L (98-107); CO2 21 mmol/L (21-32); CREATININE 1.5 mg/dl (0.55-1.3); GLUCOSE,RANDOM 96 mg/dl (74-106); SGOT/AST 24 U/L (15-37); SGPT/ALT 17 U/L (13-61); SODIUM 137 mmol/L (136-145); TOT PROT 7.3 g/dl (6.4-8.2); URIC ACID 4.5 mg/dl (2.6-7.2)
[2020-10-14 11:13] LABS: ERYTHROCYTE SEDIMENTATION RATE 16 mm/hr (0-30)
== END 2020-10-14 11:30 | disposition home or self-care (01) ==
LOC: FER 09:41
DX: M25.531 Pain in right wrist (principal)
CPT/HCPCS: 36415; 73110-TC-RT-FY; 80053; 84550; 85025; 85651; 86140; 99284-25